=== PATIENT | male | born 1985 | race Caucasian/White ===

== ENCOUNTER 2020-03-30 21:13 | Inpatient (IN) | payer MEDICAID, SELFPAY ==
[2020-03-30 21:14] VITALS: BP 117/70; PULSE 101; RESP 24; TEMP 38.2; O2SAT 100; BMI 24.3
[2020-03-30 21:18] VITALS: BP 117/70; PULSE 101; RESP 24; TEMP 38.2; O2SAT 100
[2020-03-30 21:23] VITALS: O2SAT 97
--- NOTE | 2020-03-30 21:36 | EKG12_ITS ---
Test Reason : ARYTHMIA Blood Pressure : / mmHG Vent. Rate : 096 BPM Atrial Rate : 096 BPM P-R Int : 122 ms QRS Dur : 098 ms QT Int : 360 ms P-R-T Axes : 071 074 037 degrees QTc Int : 454 ms Normal sinus rhythm Normal ECG Confirmed by ESTELA BORREGO, YOLANDA ([id number]), newspaper editor managing UZMA CORADO ([id number]) on 04/05/2020 11:05:00 AM Referred By: DAVID Confirmed By:SHYANNE PALMER MD
--- NOTE | 2020-03-30 21:52 | ED.VIS.GEN ---
History of Present Illness Chief Complaint: Shortness of Breath Informant: Patient Narrative: Patient is a 34-year-old male who presents to the emerge department for feeling very poorly. States he feels like he is going to . He has body aches all over. He hurts in the shoulders bilaterally. He did not realize he had a fever until he presented here. This initially started 4 days ago but progressively got worse today. Not tried taking anything for this. He denies any cough. He has been feeling short of breath. No chest pain. No significant abdominal pain besides the pain that he hurts all over. He has not been nauseous or vomiting. He has been having a few episodes of diarrhea. No urinary symptoms. He states he did have a similar episode like this whenever he had an abscess drained in his right calf. He was in a coma for a month at that time. He does admit to IV drug abuse. States that he last used heroin yesterday. No known abscesses anywhere else at this time. He denies any significant neck stiffness. He does have a mild headache. No photophobia. All of his joints hurt. He denies any alcohol use. Past Medical History - Allergies and Home Meds Allergies/Adverse Reactions: Allergies No Known Allergies Allergy (Verified 03/30/20 21:18) Smoking Status: Current every day smoker Review of Systems All systems negative except as indicated General: Reports: Chills, Malaise. Denies: Fever, Sweats Eyes: Denies: Visual changes - bilaterally, Diplopia ENT: Denies: Rhinorrhea, Sore throat Cardiovascular: Denies: Chest pain, Palpitations Respiratory: Reports: Dyspnea. Denies: Cough Gastrointestinal: Reports: Diarrhea. Denies: Abdominal pain, Nausea, Vomiting Genitourinary: Denies: Dysuria, Hematuria, Frequency Musculoskeletal: Reports: Myalgias, Arthralgias, Back pain. Denies: Extremity Pain Skin: Denies: Rash, Wounds Neurological: Reports: Headache. Denies: Weakness, Numbness Physical Exam Vital Signs/Narrative: Vital Signs Temp Pulse Resp BP Pulse Ox 03/30/20 21:18 100.8 F H 101 H 24 H 117/70 100 03/30/20 21:14 100.8 F H 101 H 24 H 117/70 100 General: Well nourished, Well developed, Acute Distress - Mild distress Head: Normocephalic, Atraumatic Eyes: Perrl, EOMI ENT: Moist mucous membranes, No rhinorrhea Neck: Supple, Nontender, - - Negative Brudzinski and Kernig sign Cardiovascular: Regular rhythm, No murmurs, Tachycardia Respiratory: No distress, CTA bilaterally, Chest nontender Abdomen: Soft, Nontender, Nondistended, Normal bowel sounds Back: Nontender, Normal Inspection Extremities: No edema, Tenderness - Shoulder tenderness. Skin: Normal color, No rash Neurological: Alert, Oriented x3, Cranial nerves II-XII grossly intact, Normal Strength, Normal Sensation Psychological: Normal affect, Normal Mood Diagnostic/Tx/Re-eval - EKG Initial EKG Interpretation: - - Rate of 96 bpm and normal sinus rhythm. Normal intervals. Normal axis. No ST elevations or depressions appreciated. No T wave abnormalities. - Medical Decision Making Patient presents the emerge department for generally poor feeling. He has been having diffuse arthralgias. He does have a fever upon arrival is tachycardic and mildly tachypneic. He does admit to IV drug abuse. I do have concern for septic emboli. Basic lab work and blood cultures being obtained along with chest x-ray. X-ray showed multiple bilateral patchy infiltrates with CT scan was performed. This was consistent with septic emboli. His lactic acid is mildly elevated. He started on broad-spectrum antibiotics with vancomycin and Zosyn. Blood cultures obtained prior to antibiotic administration. His lactic acid was mildly elevated and he was given a bolus of normal saline. Given normal vital signs after initial bolus he does not require the full 30 cc/kg bolus dose of IV fluids. He is eating and drinking at bedside as well. He otherwise has been stable after initial treatment. Will bring into the ICU for further evaluation and management. Patient understands and is agreeable with this plan. - Critical Care Time Critical care time (excluding procedures): 30-74 minutes, Discussing w/Patient &/or Family/Machine Helper, Arranging Admission or Transfer, Performing Direct Patient Care at Bedside ED Disposition - Plan for ED Patient: Disposition: Acute Care [facility] Diagnosis: Septic pulmonary embolism, Severe sepsis, IV drug abuse
[2020-03-30 21:54] LABS: Basophil# 0.04 X10^3/uL; Basophil% 0.3 % (0-1); Eosinophil# 0.02 X10^3/uL; Eosinophils% 0.1 % (0-5); Hematocrit 31.5 % (40-54); Hemoglobin 10.6 g/dL (13.0-16.5); Mean Corp Hgb Conc 33.7 g/dL (32-36); Mean Corpuscular Hgb 26.8 pg (27.0-32.0); Mean Corpuscular Volume 79.7 fL (80-94); Mean Platelet Vol. 12.3 fl (6.2-12.0); Monocyte# 0.89 X10^3/uL; Monocyte% 6.3 % (0-10); NRBC Flagged by Analyzer 0 % (0-5); Neutrophil # 12.04 X10^3/uL (2.7-7.7); Neutrophil % 85.7 % (47-70); POSITIVE MORPHOLOGY YES; Platelet Count 126 K/mm3 (150-450); RBC Distribution Width CV 14.4 % (11.6-14.6); RBC Distribution Width SD 41.8 fl (35.1-43.9); Red Blood Count 3.95 M/mm3 (4.6-6.2); White Blood Count 14.1 K/mm3 (4.4-11.0)
[2020-03-30 22:00] LABS: Differential Indicated SCAN CRITERIA MET
--- NOTE | 2020-03-30 22:15 | RAD_ITS ---
STUDY: X-RAY CHEST REASON FOR EXAM: Male, 34 years old. COUGH, SOB, FEVER, WEAKNESS, STIFF LEGS X4 DAYS TECHNIQUE: Single AP portable view of the chest. COMPARISON: None. FINDINGS: Normal lung volumes. Patchy ill-defined pulmonary opacities in the periphery of both lungs worse on the right. The appearance is consistent with nonspecific multifocal pneumonia including possible viral etiologies. No effusions. Normal size heart. Normal mediastinum and moni. Normal visualized pulmonary arteries. Normal visualized aortic arch and descending thoracic aorta. Normal visualized thoracic spine. Normal visualized ribs, clavicles, and shoulders. There is no demonstrated abnormality of the visualized soft tissue structures of the upper abdomen. RAD/Chest 1 View (Portable) IMPRESSION: Multiple bilateral patchy areas of pulmonary opacity most consistent with nonspecific multifocal pneumonia. Electronically Signed: Gideon Merino MD at 22:37 EDT , Service support ,
[2020-03-30 22:16] LABS: ALB/GLOB Ratio 0.4 RATIO (0.9-2.4); AST(SGOT) 22 U/L (15-37); Alanine Aminotransfer ALT/SGPT 21 U/L (16-61); Albumin, Serum 1.9 g/dL (3.2-5.0); Alkaline Phosphatase 91 U/L (45-117); Anion Gap 8 (5-15); BUN 20 mg/dL (7-18); BUN/Creat Ratio 18.7 RATIO (10-20); Calcium,Total 7.6 mg/dL (8.5-10.1); Chloride 97 mmol/L (98-107); Creatinine, Serum 1.07 mg/dL (0.70-1.30); EST Glomerular Filtration Rate 83 mL/min (>60); Est Glom Filt Rate - Afr Amer 100 mL/min (>60); Estimated Creatinine Clearance 104.76 ml/min; Globulin 4.9 g/dL (2.2-4.2); Glucose 132 mg/dL (74-106); Potassium 3.6 mmol/L (3.5-5.1); Protein, Total 6.8 g/dL (6.4-8.2); Sodium Level 132 mmol/L (136-145)
[2020-03-30 22:22] VITALS: BP 113/68; PULSE 91; RESP 26; TEMP 37.8; O2SAT 95
[2020-03-30 22:27] LABS: Lactic Acid 2.7 mmol/L (0.4-1.9)
[2020-03-30] MEDS: 0.9% Normal Saline 1,000 ML 999 ML IV (22:34)
[2020-03-30] MEDS: Acetaminophen 325 MG Tablet 650 MG PO (22:35)
[2020-03-30 22:52] LABS: Anisocytosis RARE; Microcytosis RARE; Platelet Estimate SLT DEC (ADEQ); Red Cell Morphology N CHROM NORMAL (NORM C&C); Toxic Granulation 1+
[2020-03-30 23:00] VITALS: BP 117/63; PULSE 88; RESP 28; TEMP 37.7; O2SAT 96
--- NOTE | 2020-03-30 23:11 | CT_ITS ---
HISTORY: ABN XRAY. ADDITIONAL HISTORY: Cough, shortness of breath, fever, weakness and stiff legs for 4 days EXAMINATION/TECHNIQUE: CTA Chest WO/W Contrast Injection PULMONARY EMBOLISM PROTOCOL: 2D and 3D images to include MIP and/or volume rendered images CONTRAST: IV 100mL [id number] Number of images including paperwork: [id number] A radiation dose optimization technique was used for this scan. COMPARISON: Chest x-ray 03/30/2020 FINDINGS: PULMONARY ARTERIES: No large central embolus. Evaluation limited due to suboptimal contrast bolus timing despite 2 attempts. AORTA AND GREAT VESSELS: Unremarkable. HEART/PERICARDIUM: Normal heart size. Trace pericardial fluid. MEDIASTINUM: Unremarkable. ADENOPATHY: Mild mediastinal and right hilar adenopathy. THYROID: Unremarkable visualized portions. LUNG PARENCHYMA: Multiple bilateral lung nodules, many of which are cavitated. Nodules have peripheral predominant distribution. Some have adjacent groundglass opacity. PLEURAL SPACES: Unremarkable. UPPER ABDOMEN: The visualized portion of the spleen appears enlarged measuring 15.7 cm AP. Renal enhancement appears heterogeneous on the second scan. OSSEOUS AND SOFT TISSUE STRUCTURES: No acute skeletal findings. CT/CTA Chest W/WO Contrast IMPRESSION: 1. No large central pulmonary embolus. Evaluation limited due to suboptimal contrast timing. 2. Numerous bilateral lung nodules, many of which are cavitary. Septic emboli, cavitating infection, necrotizing noninfectious granulomatous disease such as granulomatosis with polyangiitis, and metastatic disease are in the differential diagnosis. 3. Heterogeneous renal enhancement. Correlate with urinalysis. 4. Additional findings above. Individualized dose optimization techniques were used for this CT. at 0018 Reported and signed by: Andra Thomas MD Electronically Signed: Andra Thomas MD at 0:18 EDT Tel , Service support ,
--- NOTE | 2020-03-30 23:32 | HP.PCM_ITS ---
History of Present Illness Date of Admission: 03/30/20 Chief Complaint: Fever, chills, diarrhea, dyspnea x 4 days Admission Diagnoses: 1. Severe Sepsis secondary to Bilateral Pulmonary Cavitating Nodules/PNA and High Suspicion Endocarditis with underlying IVDA complicated by Opiate Acute Withdrawal 2. Acute Opiate Withdrawal 3. Microcytic anemia, unclear chronicity 4. Hyponatremia, hypovolemic suspected 5. Hyperglycemia 6. Polysubstance Abuse, IVDA, History of Hepatitis C, Chronic 7. Tobacco Abuse The patient is a 34 y/o M w/ PMHx: Polysubstance abuse w/ IVDA (Heroin, daily IV use, unclear amount, notes had been clean for since early in the year but relapsed x 4 weeks, last usage 24-48 hours prior), Known Hepatitis C who presents to the [facility] ED on 03/30/20 with history of 4 days of progressively worsening fatigue, malaise, fever and chills, severe diffuse arthralgias although worse BL shoulder, dyspnea worse with exertion but no related cough although coughing while in the ED with no nausea, emesis, abdominal pain but reported diarrhea (2-3 episodes daily), no headache, no change in his sense of t aste or smell. Last IV injection was his antecubital fossa with no pain, erythema. He is unable to tell exactly his last usage of IV heroin but notes 24 to 48 hours prior thus per discussion some symptoms could also be related to withdrawal. In the ED work-up included T 100.8, heart rate 101, BP 117/70, respiratory rate 24, on a percent on room air, CBC with WBC 14.1, hemoglobin 10.6, platelet 126 with left shift and also concurrent lymphopenia, CMP with sodium 132, chloride 97, BUN/creatinine 20/1.07, glucose 132, lactic acid 2.7, calcium 7.6, troponin less than 0.015, EKG was sinus tachycardia with no acute evidence of ischemia, chest x-ray with multiple bilateral patchy areas of pulmonary opacity consistent with a nonspecific multifocal pneumonia, follow-up CTPA with no large central pulmonary emboli although evaluation limited secondary to suboptimal contrast timing, numerous bilateral lung nodules many of which are cavitary, heterogeneous renal enhancement. In the ED patient mi nistered normal saline, Tylenol, vancomycin and Zosyn. Past Medical History Allergies No Known Allergies Allergy (Verified 03/30/20 21:18) Home Medications: Ambulatory Orders Medication Instructions Recorded NK 03/30/20 Lives: Alone Smoking Status: Current every day smoker - Patient with ongoing 1/2 pack/day cigarette tobacco usage. Tobacco Use: Cigarettes Alcohol: None Drugs: Heroin - Patient with ongoing IV heroin usage, relapsed recently has been using for at least the last 4 weeks but had been clean for several months prior to this. - *Family History Maternal History Items: Diabetes Paternal History Items: - - Patient denies any market paternal family history of heart disease, diabetes, cancer but states he does not know his history well. Review of Systems Constitutional: Reports: Anorexia, Chills, Fever, Malaise, Weakness, Fatigue. Denies: Weight Change HEENT: Denies: Head Aches, Sinus Congestion, Sinus Drainage Cardiovascular: Denies: Chest Pain, Chest Pressure, Chest Tightness, Light Headedness, Orthopnea, Palpitations, Syncope Respiratory: Reports: Shortness of Breath, Shortness of breath at rest, Shortness of breath upon exertion. Denies: Cough, Sputum production, Wheezing Gastrointestinal: Reports: Diarrhea. Denies: Abdominal Pain, Nausea, Vomiting Genitourinary: Denies: Dysuria Musculoskeletal: Reports: Joint Pain, Joint stiffness, Muscle pain. Denies: Joint Tenderness Skin: Reports: Skin Changes. Denies: Rash, Wounds Neurological: Denies: Numbness, Tingling, Focal weakness Psychiatric: Denies: Anxiety, Depression, Homicidal Ideations, Suicidal Ideations Hematologic/ Lymphatic: Reports: Anemia. Denies: Easy Bruising, Easy Bleeding VTE Information - Inpt Only VTE Present on Admission: No VTE Mechan Device Prophylaxis: SCD's VTE Pharm Prophylaxis ordered?: Yes Patient Problems: Active and Suspected Problems Septic pulmonary embolism (Acute) Severe sepsis (Acute) IV drug abuse (Acute) Subjective: Patient laying in the ED bed, coated in sweat, ill-appearing, notes severe ongoing diffuse pain. Objective: Physical Examination: General: awake, alert, oriented x 3 and cooperative, laying in the ED bed, ill appearing, coated in sweat. Skin: normal color, turgor, no icterus, cyanosis, most recent injection sites in the antecubital fossa with no erythema or fluctuance. HEENT: AT/NC, EOMI, PERRLA, dry MM, no carotid bruits or JVD noted. Lungs: Diffusely diminished, greater bases, mildly increased respiratory rate but no obvious evidence of distress, no rales, ronchi or wheezing. Heart: Tachycardic with regular rhythm; no gallop, rub audible, +SM. Abdomen: soft, NTTP, ND, normal BS, no HSM. Extremities: no cyanosis, clubbing, or edema, see skin. Neurological: patient awake, alert, oriented x 3; cognitive function suspect near baseline intact; pupils equally reactive to light and accomodation; cranial nerves II-XII grossly normal, moving all 4 extremities, no focal deficits, strength moderately to severely globally decreased secondary to acute presentation and complaints. Psychiatric: affect appears ill, mildly agitated, uncomfortable appearing, no acute evidence of depressive or anxiety feelings. - Physical Exam Vitals/I&O's: Vital Signs Temp Pulse Resp BP Pulse Ox 100 F H 88 28 H 117/63 96 03/30/20 23:00 03/30/20 23:00 03/30/20 23:00 03/30/20 23:00 03/30/20 23:00 Oxygen Delivery Method Room Air Weight: 179 lb 7.3 oz Body Mass Index (BMI) 24.3 Laboratory Results 03/30/20 21:30: WBC 14.1 H, RBC 3.95 L, Hgb 10.6 L, Hct 31.5 L, MCV 79.7 L, MCH 26.8 L, MCHC 33.7, RDW Std Deviation 41.8, RDW Coeff of Gee 14.4, Plt Count 126 L, MPV 12.3 H, Immature Gran % (Auto) 2.600 H, Neut % (Auto) 85.7 H, Lymph % (Auto) 5.0 L, Greene % (Auto) 6.3, Eos % (Auto) 0.1, Baso % (Auto) 0.3, Absolute Neuts (auto) 12.0 H, Absolute Lymphs (auto) 0.70 L, Nucleated RBC % 0, Toxic Granulation 1+, Platelet Estimate SLT DEC, RBC Morphology N CHROM, Anisocytosis RARE, Microcytosis RARE 03/30/20 21:30: Sodium 132 L, Potassium 3.6, Chloride 97 L, Carbon Dioxide 27.0, Anion Gap 8, BUN 20 H, Creatinine 1.07, Estim Creat Clear Calc 104.76, Est GFR (MDRD) Af Amer 100, Est GFR (MDRD) Non-Af 83, BUN/Creatinine Ratio 18.7, Glucose 132 H, Calcium 7.6 L, Total Bilirubin 0.70, AST 22, ALT 21, Alkaline Phosphatase 91, Troponin I < 0.015, Total Protein 6.8, Albumin 1.9 L, Globulin 4.9 H, Albumin/Globulin Ratio 0.4 L 03/30/20 21:30: Lactic Acid 2.7 H* 03/30/20 21:50: COVID-19 (PILLO) Pending Current Medications Vancomycin HCl 1,750 mg/ (Sodium Chloride) 535 mls @ 250 mls/hr IV X1 ONE Stop: 03/31/20 00:38 Assessment/Plan All Active Problems Septic pulmonary embolism (Acute) Severe sepsis (Acute) IV drug abuse (Acute) The patient is a 34 y/o M w/ PMHx: Polysubstance abuse w/ IVDA (Heroin, daily IV use, unclear amount, notes had been clean for since early in the year but relapsed x 4 weeks, last usage 24-48 hours prior), Known Hepatitis C who presents to the [facility] ED on 03/30/20 with history of 4 days of progressively worsening fatigue, malaise, fever and chills, severe diffuse arthralgias although worse BL shoulder, dyspnea worse with exertion but no related cough and diarrhea. 1. Severe Sepsis secondary to Bilateral Pulmonary Cavitating Nodules/PNA and High Suspicion Endocarditis with underlying IVDA complicated by Opiate Acute Withdrawal: COVID testing negative, lower suspicion given history and CT findings. Will admit to the ICU, maintain on oxygen with wean as tolerated to room air, PRN albuterol, maintained on IV Zosyn and Vancomycin, requesting ICU and ID consultations, HOB, IS parameters w/ pending sputum cultures and urine antigens. Bld cx x 2 obtained in the ED. ECHO requested. 2. Acute Opiate Withdrawal: Suspect contributing to his presentation therefore if BP will allow will initiate and continue on protocol with tapering course of Subutex, as needed tylenol, ibuprofen, bowel regimen, gabapentin, Bentyl, Vistaril, methocarbamol, clonidine, PRN nightly trazodone for insomnia, IV fluids, IV antiemetics. Requested consultation with case management for transition to next level of rehabilitation care. 3. Microcytic anemia, unclear chronicity: Admission hemoglobin 10.6, MCV 79.7, will request iron panel+ TIBC, ferritin. 4. Hyponatremia, hypovolemic suspected: Admission sodium 132, likely associated with acute presentation as noted, continue aggressive hydration, trend CMP. 5. Hyperglycemia: Admission glucose 132, likely secondary to acute presentation, will obtain A1c to be cautious. 6. Polysubstance Abuse, IVDA, History of Hepatitis C, Chronic: Patient currently not candidate for hep C treatment currently as needs to be clean, sober x 6 months, documented attendance NA or AA meetings, counseling and ongoing negative drug screens. HIV, hepatitis panel to assess for co-infection pending. 7. Tobacco Abuse: Encouraged cessation, inpatient consultation per RT, NR if desired. 8. DVT prophylaxis: SCDs, Lovenox. Inpatient E&M: 69756 Init Hosp L3
[2020-03-31] VITALS (30 sets, daily range): BP systolic 83–129; BP diastolic 62–82; PULSE 71–106; RESP 16–38; TEMP 35.8–37.8; O2SAT 95–100; BMI 23.3
--- NOTE | 2020-03-31 00:45 | ED.RN ---
report called to karla
[2020-03-31 01:44] LABS: Reflex Lactate? Y
--- NOTE | 2020-03-31 01:45 | ECHOD_ITS ---
Reason For Study: ARRHYTHMIA Procedure This was a 2D Doppler, Color Flow transthoracic echocardiogram. The study was technically difficult. Pt scanned supine due to pain from withdrawl. Exam performed portable in ICU/CCU. Left Ventricle Normal LV size. The estimated ejection fraction is 55 %. Normal diastology for age. No regional wall motion abnormalities noted. Right Ventricle Normal RV size. Normal systolic function. Atria Normal left atrium. Normal right atrium. No doppler evidence for ASD. Mitral Valve There is no mitral valve stenosis. No mitral valve insufficiency. Tricuspid Valve Echodensity in the subvalvular apparatus that measures 0.9cm x 1.3cm that appears to a vegetation. There is no tricuspid stenosis. Trivial tricuspid valve insufficiency. Pulmonary artery systolic pressure is 40 mmHg. Aortic Valve Trisinus/trileaflet aortic valve. There is no aortic stenosis. No aortic valve insufficiency. Pulmonic Valve There is no pulmonic valvular stenosis. No pulmonic valve insufficiency. Great Vessels Normal aortic root. Pericardium/Pleural No pericardial effusion. MMode/2D Measurements & Calculations LVIDd: 5.4 cm IVSd: 1.0 cm Ao root diam: 3.9 cm LVIDs: 4.0 cm LVPWd: 0.85 cm RVDd: 4.0 cm FS: 27.0 % LAV(MOD-bp): 52.8 ml LA A4 area: 15.5 cm2 LA dimension(2D): 3.6 cm LAV(MOD-bp) Indexed: 26.5 ml/m2 LAV(MOD-sp2): 65.1 ml LAV(MOD-sp4): 40.2 ml RA A4 area: 17.4 cm2 Time Measurements MV dec time: 0.32 sec Doppler Measurements & Calculations MV E max danilo: 68.7 cm/sec Lat Peak E' Danilo: 13.1 cm/sec Med Peak E' Danilo: 9.4 cm/sec MV A max danilo: 58.0 cm/sec E/E' lat: 5.2 E/E' med: 7.3 MV E/A: 1.2 Ao V2 max: 141.8 cm/sec LV V1 max: 122.7 cm/sec TR max danilo: 291.3 cm/sec Ao max P.1 mmHg LV V1 max P.0 mmHg TR max P.9 mmHg Interpretation Summary The estimated ejection fraction is 55 %. Normal diastology for age. Echodensity in the subvalvular apparatus that measures 0.9cm x 1.3cm that appears to a vegetation Ordering Physician: Leah Cain Performed By: Celina Mayorga, MESFIN, RVT
[2020-03-31] MEDS: Famotidine 20 MG Tablet PO ×2 (02:19→20:58)
[2020-03-31] MEDS: Enoxaparin 40 MG/0.4 ML Syringe SC (02:20)
[2020-03-31] MEDS: 0.9% Saline Lock 10 ML Syringe IV ×5 (02:20→13:02)
[2020-03-31] MEDS: Morphine 4 MG/ML Syringe IV ×3 (02:30→13:01)
[2020-03-31] MEDS: 0.9% Normal Saline 1,000 ML 150 ML IV ×3 (02:30→19:50)
[2020-03-31] MEDS: 0.9% Normal Saline 1,000 ML 999 ML IV ×2 (02:39→03:42)
[2020-03-31 02:40] LABS: Hemoglobin A1c 5.7 % (3.8-5.6)
[2020-03-31 02:49] LABS: D-Dimer Quantitative (DVT/PE) > 20.00 FEU/ug/m (0.27-0.49)
[2020-03-31 02:51] LABS: Lactic Acid 3.1 mmol/L (0.4-1.9)
[2020-03-31 03:03] LABS: HIV - WCH Non-Reactive (Nonreactive); Procalcitonin 0.92 ng/mL (0.00-0.09)
[2020-03-31 03:10] LABS: Absolute Lymphocyte Count 0.96 X10^3/uL (0.83-4.51); Absolute Neutrophil Count 11.8 X10^3/uL (2.0-7.7); Basophil# 0.03 X10^3/uL; Basophil% 0.2 % (0-1); Eosinophil# 0.03 X10^3/uL; Eosinophils% 0.2 % (0-5); Hematocrit 30.6 % (40-54); Hemoglobin 10.3 g/dL (13.0-16.5); Lymphocyte # 0.96 X10^3/ul (4.0); Lymphocyte % 6.8 % (19-41); Mean Corp Hgb Conc 33.7 g/dL (32-36); Mean Corpuscular Volume 80.3 fL (80-94); Mean Platelet Vol. 11.2 fl (6.2-12.0); Monocyte# 0.92 X10^3/uL; Monocyte% 6.5 % (0-10); NRBC Flagged by Analyzer 0 % (0-5); Neutrophil # 11.83 X10^3/uL (2.7-7.7); Neutrophil % 84.2 % (47-70); POSITIVE MORPHOLOGY YES; Platelet Count 121 K/mm3 (150-450); RBC Distribution Width CV 14.6 % (11.6-14.6); RBC Distribution Width SD 42.4 fl (35.1-43.9); Red Blood Count 3.81 M/mm3 (4.6-6.2); White Blood Count 14.1 K/mm3 (4.4-11.0)
[2020-03-31 03:11] LABS: Differential Indicated SCAN CRITERIA MET
[2020-03-31] MEDS: Ibuprofen 600 MG Tablet PO ×2 (03:28→13:01)
--- NOTE | 2020-03-31 03:53 | PCM.RX.CS ---
Consult Pharmacy has been consulted to manage selected antiobiotic: Vancomycin Type of Consult: New start Suspected Infection: Pneumonia Labs: Sodium 132 mmol/L (136-145) L 03/30/20 21:30 Potassium 3.6 mmol/L (3.5-5.1) 03/30/20 21:30 Chloride 97 mmol/L (98-107) L 03/30/20 21:30 Carbon Dioxide 27.0 mmol/L (21.0-32.0) 03/30/20 21:30 Anion Gap 8 (5-15) 03/30/20 21:30 BUN 20 mg/dL (7-18) H 03/30/20 21:30 Creatinine 1.07 mg/dL (0.70-1.30) 03/30/20 21:30 Est GFR (MDRD) Af Amer 100 mL/min (>60) 03/30/20 21:30 Est GFR (MDRD) Non-Af 83 mL/min (>60) 03/30/20 21:30 BUN/Creatinine Ratio 18.7 RATIO (-20) 03/30/20 21:30 Glucose 132 mg/dL (74-106) H 03/30/20 21:30 Estimated Creatinine Clearance: >100 Goal Trough: 15-20 mcg/mL Pharmacy Plan for Drug Dosing: Pharmacy Service will continue to monitor and adjust dosing as required. Medications Vancomycin HCl (Vancomycin) 1,000 mg in 200 mls @ 200 mls/hr IV Q8H JOEL Discontinued Medications Vancomycin HCl 1,750 mg/ (Sodium Chloride) 535 mls @ 250 mls/hr IV X1 ONE Stop: 03/31/20 00:38 Last Admin: 03/31/20 02:15 Dose: Infused Documented by: Follow-Up Labs: Trough Vancomycin Labs to be done on [date and time ordered]: 03/31 @ 6131
[2020-03-31 04:00] LABS: Amphetamine Urine VISTA NEGATIVE (<1000 ng/mL); Barbiturate Urine VISTA NEGATIVE (< 200 ng/mL); Benzodiazepine Urine VISTA NEGATIVE (< 200 ng/mL); Cocaine Urine VISTA NEGATIVE (< 300 ng/mL); Ecstacy Urine VISTA NEGATIVE (< 500 ng/mL); Methadone Urine VISTA NEGATIVE (< 300 ng/mL); PCP Urine VISTA NEGATIVE (< 25 ng/mL); THC Urine VISTA NEGATIVE (< 50 ng/mL); Vista UDS pH Range 5
[2020-03-31 04:01] LABS: Differential Comment SCANNED
[2020-03-31 04:09] LABS: Ferritin 764 ng/mL (26-388); Iron 14 ug/dL (65-175); Iron Binding Capacity,Total 143 ug/dL (250-450); LDH 135 U/L (87-241); Magnesium 2.2 mg/dL (1.6-2.6); PERCENT IRON SATURATION 9.8 % (15.0-55.0)
--- NOTE | 2020-03-31 05:26 | NURSING ---
Pt asking for snack. Remains painful, states its more his shoulder joints anteriorly.
--- NOTE | 2020-03-31 05:55 | RAD_ITS ---
STUDY: X-RAY CHEST REASON FOR EXAM: Male, 34 years old. SOB AND COUGH TECHNIQUE: Single AP portable view of the chest. COMPARISON: 03/30/[address] chest. FINDINGS: There are superimposed monitor leads. There is no significant change of bilateral ill-defined predominantly peripheral nodules/masses some of which are cavitating. There is no demonstrated pleural abnormality. Normal size heart. Normal mediastinum and moni. Normal visualized pulmonary arteries. Normal visualized aortic arch and descending thoracic aorta. Normal visualized thoracic spine. Normal visualized ribs, clavicles, and shoulders. There is no demonstrated abnormality of the visualized soft tissue structures of the upper abdomen. RAD/Chest 1 View (Portable) IMPRESSION: Bilateral peripheral nodules/masses some of which are cavitating without change. Consider septic emboli among others. Electronically Signed: Evon Dey MD at 6:51 EDT , Service support ,
[2020-03-31 05:59] LABS: ALB/GLOB Ratio 0.3 RATIO (0.9-2.4); AST(SGOT) 19 U/L (15-37); Alanine Aminotransfer ALT/SGPT 16 U/L (16-61); Albumin, Serum 1.5 g/dL (3.2-5.0); Alkaline Phosphatase 75 U/L (45-117); Anion Gap 5 (5-15); BUN 16 mg/dL (7-18); BUN/Creat Ratio 18.6 RATIO (10-20); Calcium,Total 6.9 mg/dL (8.5-10.1); Chloride 107 mmol/L (98-107); Creatinine, Serum 0.86 mg/dL (0.70-1.30); EST Glomerular Filtration Rate 107 mL/min (>60); Est Glom Filt Rate - Afr Amer 129 mL/min (>60); Estimated Creatinine Clearance 130.34 ml/min; Globulin 4.4 g/dL (2.2-4.2); Glucose 129 mg/dL (74-106); Potassium 3.6 mmol/L (3.5-5.1); Protein, Total 5.9 g/dL (6.4-8.2); Sodium Level 138 mmol/L (136-145)
[2020-03-31 06:18] LABS: Lactic Acid 2.3 mmol/L (0.4-1.9)
--- NOTE | 2020-03-31 06:19 | PCM.CON.CC ---
Reason for Consult Date of Consultation: 03/31/20 Reason for Consultation: Severe sepsis History of Present Illness: The patient is a 34-year-old male, with a history as outlined below, who presented to the emergency department on March 30 with complaints of shortness of breath, myalgias, fatigue and malaise for the last 4 to 5 days. The patient reports a longstanding history of heroin dependency, which was apparently in remission up until a few weeks ago, when he again began to use. The patient did report that he last used 24 hours ago. He typically injects in his distal upper extremities. In addition to the aforementioned symptoms, he does report a great deal of pain in his bilateral shoulders. On presentation to the emergency department, the patient was noted to be febrile with a temperature of 100.8 ?F. He was also noted to be tachycardic and tachypneic. Laboratory evaluation revealed an elevated white blood cell count of 14,000. D-dimer was elevated to greater than 20. Chemistry profile was notable for a sodium of 132, chloride of 97 and creatinine of 1.07. Lactate was elevated to 2.7. Albumin was low at 1.9. Procalcitonin was elevated to 0.92. Toxicology screen was positive for opiates. Coronavirus PCR was negative. A CTA chest was obtained which showed no evidence for pulmonary embolism. However, innumerable bilateral cavitary lesions were noted, likely the consequence of septic emboli. The patient received supplemental IV fluid hydration and was placed on broad-spectrum antimicrobials. He was subsequently admitted to the medical intensive care unit for further management. Past Medical History Allergies No Known Allergies Allergy (Verified 03/30/20 21:18) Home Medications: Ambulatory Orders Medication Instructions Recorded NK 03/30/20 Lives: Alone Smoking Status: Current every day smoker Tobacco Use: Cigarettes Alcohol: None Drugs: Heroin - Patient with ongoing IV heroin usage, relapsed recently has been using for at least the last 4 weeks but had been clean for several months prior to this. - *Family History Maternal History Items: Diabetes Paternal History Items: - - Patient denies any market paternal family history of heart disease, diabetes, cancer but states he does not know his history well. Review of Systems Constitutional: Reports: Chills, Fever, Malaise, Weakness, Fatigue Eyes: Denies: Blurred vision, Double vision HEENT: Denies: Head Aches, Sinus Congestion, Sinus Drainage Cardiovascular: Denies: Chest Pain, Palpitations Respiratory: Reports: Shortness of Breath. Denies: Cough Gastrointestinal: Denies: Abdominal Pain, Nausea, Vomiting Genitourinary: Denies: Dysuria Musculoskeletal: Reports: Joint Pain Skin: Denies: Rash, Wounds Neurological: Denies: Numbness, Tingling, Focal weakness Psychiatric: Denies: Anxiety, Depression, Homicidal Ideations, Suicidal Ideations Hematologic/ Lymphatic: Reports: Anemia Objective: The patient's most recent lab work, culture data and imaging studies have all been personally reviewed. Strep and urine Legionella antigens were negative. Respiratory viral panel was negative. Blood cultures are pending. - Physical Exam Vitals/I&O's: Vital Signs Temp Pulse Resp BP Pulse Ox 100.1 F H 106 H 26 H 106/64 99 03/31/20 06:00 03/31/20 06:00 03/31/20 06:00 03/31/20 06:00 03/31/20 06:00 Oxygen Delivery Method Room Air Weight: 179 lb 3.773 oz Body Mass Index (BMI) 23.3 Intake and Output for Last 24 Hours 03/29/20 03/30/20 03/31/20 23:59 23:59 23:59 Intake Total 1050 / 1050 2879.65 / 2879.65 Output Total 540 / 540 Balance 1050 / 1050 2339.65 / 2339.65 General: Alert, Cooperative, - - Quite ill in appearance. HEENT: Atraumatic, PERRLA, Normocephalic Oral: No Gingival or Mucosal Lesions/ Ulcerations Neck: Supple, No Nodes, Trachea Midline Lungs: Diminished, Tachypneic Cardiovascular: Regular rate, Regular Rhythm Abdomen: Bowel Sounds Present, Soft, Non Tender Extremities: No clubbing, No cyanosis, No edema, - Skin: - - Track olmstead present on distal upper extremities. Healed surgical scar on distal left lower extremity Musculoskeletal: - - There is tenderness to palpation of the bilateral shoulder joint spaces Lymphatic: No Cervical, Supraclavicular, or Inguinal Adenopathy Neurological: Cranial nerves II-XII grossly intact, Neuro grossly intact Psych/Mental Status: Normal Affect, Appropriate Labs (Last 48 Hours) 03/30/20 03/30/20 03/30/20 21:30 21:30 21:30 WBC 14.1 H RBC 3.95 L Hgb 10.6 L Hct 31.5 L MCV 79.7 L MCH 26.8 L MCHC 33.7 RDW Std Deviation 41.8 RDW Coeff of Gee 14.4 Plt Count 126 L MPV 12.3 H Immature Gran % (Auto) 2.600 H Neut % (Auto) 85.7 H Lymph % (Auto) 5.0 L Ocean % (Auto) 6.3 Eos % (Auto) 0.1 Baso % (Auto) 0.3 Absolute Neuts (auto) 12.0 H Absolute Lymphs (auto) 0.70 L Nucleated RBC % 0 Differential Comment Toxic Granulation 1+ Platelet Estimate SLT DEC RBC Morphology N CHROM Anisocytosis RARE Microcytosis RARE D-Dimer Quant (PE/DVT) Sodium 132 L Potassium 3.6 Chloride 97 L Carbon Dioxide 27.0 Anion Gap 8 BUN 20 H Creatinine 1.07 Estim Creat Clear Calc 104.76 Est GFR (MDRD) Af Amer 100 Est GFR (MDRD) Non-Af 83 BUN/Creatinine Ratio 18.7 Glucose 132 H Hemoglobin A1c Lactic Acid 2.7 H* Calcium 7.6 L Magnesium Iron TIBC Iron Saturation Ferritin Total Bilirubin 0.70 AST 22 ALT 21 Alkaline Phosphatase 91 Lactate Dehydrogenase Troponin I < 0.015 C-React Prot Ext Range Total Protein 6.8 Albumin 1.9 L Globulin 4.9 H Albumin/Globulin Ratio 0.4 L Procalcitonin Urine Opiates Screen Urine Methadone Screen Ur Barbiturates Screen Ur Phencyclidine Scrn Ur Amphetamines Screen U Methamphetamin-MDMA U Benzodiazepines Scrn Urine Cocaine Screen U Cannabinoids Screen Ur Drug Screen Comment COVID-19 (PILLO) Hepatitis A IgM Ab Hepatitis A Ab Total Hep Bs Antigen Hep B Core Total Ab Hep B Core IgM Ab HIV 1&2 Antibody 03/30/20 03/31/20 03/31/20 21:50 02:10 02:10 WBC RBC Hgb Hct MCV MCH MCHC RDW Std Deviation RDW Coeff of Gee Plt Count MPV Immature Gran % (Auto) Neut % (Auto) Lymph % (Auto) Ocean % (Auto) Eos % (Auto) Baso % (Auto) Absolute Neuts (auto) Absolute Lymphs (auto) Nucleated RBC % Differential Comment Toxic Granulation Platelet Estimate RBC Morphology Anisocytosis Microcytosis D-Dimer Quant (PE/DVT) > 20.00 H* Sodium Potassium Chloride Carbon Dioxide Anion Gap BUN Creatinine Estim Creat Clear Calc Est GFR (MDRD) Af Amer Est GFR (MDRD) Non-Af BUN/Creatinine Ratio Glucose Hemoglobin A1c Lactic Acid 3.1 H* Calcium Magnesium Iron TIBC Iron Saturation Ferritin Total Bilirubin AST ALT Alkaline Phosphatase Lactate Dehydrogenase Troponin I C-React Prot Ext Range Total Protein Albumin Globulin Albumin/Globulin Ratio Procalcitonin Urine Opiates Screen Urine Methadone Screen Ur Barbiturates Screen Ur Phencyclidine Scrn Ur Amphetamines Screen U Methamphetamin-MDMA U Benzodiazepines Scrn Urine Cocaine Screen U Cannabinoids Screen Ur Drug Screen Comment COVID-19 (PILLO) Not Detected Hepatitis A IgM Ab Hepatitis A Ab Total Hep Bs Antigen Hep B Core Total Ab Hep B Core IgM Ab HIV 1&2 Antibody 03/31/20 03/31/20 03/31/20 02:10 02:10 02:10 WBC RBC Hgb Hct MCV MCH MCHC RDW Std Deviation RDW Coeff of Gee Plt Count MPV Immature Gran % (Auto) Neut % (Auto) Lymph % (Auto) Ocean % (Auto) Eos % (Auto) Baso % (Auto) Absolute Neuts (auto) Absolute Lymphs (auto) Nucleated RBC % Differential Comment Toxic Granulation Platelet Estimate RBC Morphology Anisocytosis Microcytosis D-Dimer Quant (PE/DVT) Sodium Potassium Chloride Carbon Dioxide Anion Gap BUN Creatinine Estim Creat Clear Calc Est GFR (MDRD) Af Amer Est GFR (MDRD) Non-Af BUN/Creatinine Ratio Glucose Hemoglobin A1c Lactic Acid Calcium Magnesium 2.2 Iron 14 L TIBC 143 L Iron Saturation 9.8 L Ferritin 764 H Total Bilirubin AST ALT Alkaline Phosphatase Lactate Dehydrogenase 135 Troponin I C-React Prot Ext Range 156.00 H Total Protein Albumin Globulin Albumin/Globulin Ratio Procalcitonin 0.92 H Urine Opiates Screen Urine Methadone Screen Ur Barbiturates Screen Ur Phencyclidine Scrn Ur Amphetamines Screen U Methamphetamin-MDMA U Benzodiazepines Scrn Urine Cocaine Screen U Cannabinoids Screen Ur Drug Screen Comment COVID-19 (PILLO) Hepatitis A IgM Ab Pending Hepatitis A Ab Total Pending Hep Bs Antigen Pending Hep B Core Total Ab Pending Hep B Core IgM Ab Pending HIV 1&2 Antibody Non-Reactive 03/31/20 03/31/20 03/31/20 02:10 02:10 02:10 WBC 14.1 H RBC 3.81 L Hgb 10.3 L Hct 30.6 L MCV 80.3 MCH 27.0 MCHC 33.7 RDW Std Deviation 42.4 RDW Coeff of Gee 14.6 Plt Count 121 L MPV 11.2 Immature Gran % (Auto) 2.100 H Neut % (Auto) 84.2 H Lymph % (Auto) 6.8 L Ocean % (Auto) 6.5 Eos % (Auto) 0.2 Baso % (Auto) 0.2 Absolute Neuts (auto) 11.8 H Absolute Lymphs (auto) 0.96 Nucleated RBC % 0 Differential Comment SCANNED Toxic Granulation Platelet Estimate RBC Morphology Anisocytosis Microcytosis D-Dimer Quant (PE/DVT) Sodium Potassium Chloride Carbon Dioxide Anion Gap BUN Creatinine Estim Creat Clear Calc Est GFR (MDRD) Af Amer Est GFR (MDRD) Non-Af BUN/Creatinine Ratio Glucose Hemoglobin A1c 5.7 H Lactic Acid Calcium Magnesium Iron TIBC Iron Saturation Ferritin Total Bilirubin AST ALT Alkaline Phosphatase Lactate Dehydrogenase Troponin I < 0.015 C-React Prot Ext Range Total Protein Albumin Globulin Albumin/Globulin Ratio Procalcitonin Urine Opiates Screen Urine Methadone Screen Ur Barbiturates Screen Ur Phencyclidine Scrn Ur Amphetamines Screen U Methamphetamin-MDMA U Benzodiazepines Scrn Urine Cocaine Screen U Cannabinoids Screen Ur Drug Screen Comment COVID-19 (PILLO) Hepatitis A IgM Ab Hepatitis A Ab Total Hep Bs Antigen Hep B Core Total Ab Hep B Core IgM Ab HIV 1&2 Antibody 03/31/20 03/31/20 03/31/20 03:05 05:40 05:40 WBC RBC Hgb Hct MCV MCH MCHC RDW Std Deviation RDW Coeff of Gee Plt Count MPV Immature Gran % (Auto) Neut % (Auto) Lymph % (Auto) Ocean % (Auto) Eos % (Auto) Baso % (Auto) Absolute Neuts (auto) Absolute Lymphs (auto) Nucleated RBC % Differential Comment Toxic Granulation Platelet Estimate RBC Morphology Anisocytosis Microcytosis D-Dimer Quant (PE/DVT) Sodium 138 Potassium 3.6 Chloride 107 Carbon Dioxide 26.0 Anion Gap 5 BUN 16 Creatinine 0.86 Estim Creat Clear Calc 130.34 Est GFR (MDRD) Af Amer 129 Est GFR (MDRD) Non-Af 107 BUN/Creatinine Ratio 18.6 Glucose 129 H Hemoglobin A1c Lactic Acid Calcium 6.9 L Magnesium Iron TIBC Iron Saturation Ferritin Total Bilirubin 0.50 AST 19 ALT 16 Alkaline Phosphatase 75 Lactate Dehydrogenase Troponin I < 0.015 C-React Prot Ext Range Total Protein 5.9 L Albumin 1.5 L Globulin 4.4 H Albumin/Globulin Ratio 0.3 L Procalcitonin Urine Opiates Screen POSITIVE H Urine Methadone Screen NEGATIVE Ur Barbiturates Screen NEGATIVE Ur Phencyclidine Scrn NEGATIVE Ur Amphetamines Screen NEGATIVE U Methamphetamin-MDMA NEGATIVE U Benzodiazepines Scrn NEGATIVE Urine Cocaine Screen NEGATIVE U Cannabinoids Screen NEGATIVE Ur Drug Screen Comment COVID-19 (PILLO) Hepatitis A IgM Ab Hepatitis A Ab Total Hep Bs Antigen Hep B Core Total Ab Hep B Core IgM Ab HIV 1&2 Antibody 03/31/20 05:40 WBC RBC Hgb Hct MCV MCH MCHC RDW Std Deviation RDW Coeff of Gee Plt Count MPV Immature Gran % (Auto) Neut % (Auto) Lymph % (Auto) Ocean % (Auto) Eos % (Auto) Baso % (Auto) Absolute Neuts (auto) Absolute Lymphs (auto) Nucleated RBC % Differential Comment Toxic Granulation Platelet Estimate RBC Morphology Anisocytosis Microcytosis D-Dimer Quant (PE/DVT) Sodium Potassium Chloride Carbon Dioxide Anion Gap BUN Creatinine Estim Creat Clear Calc Est GFR (MDRD) Af Amer Est GFR (MDRD) Non-Af BUN/Creatinine Ratio Glucose Hemoglobin A1c Lactic Acid 2.3 H* Calcium Magnesium Iron TIBC Iron Saturation Ferritin Total Bilirubin AST ALT Alkaline Phosphatase Lactate Dehydrogenase Troponin I C-React Prot Ext Range Total Protein Albumin Globulin Albumin/Globulin Ratio Procalcitonin Urine Opiates Screen Urine Methadone Screen Ur Barbiturates Screen Ur Phencyclidine Scrn Ur Amphetamines Screen U Methamphetamin-MDMA U Benzodiazepines Scrn Urine Cocaine Screen U Cannabinoids Screen Ur Drug Screen Comment COVID-19 (PILLO) Hepatitis A IgM Ab Hepatitis A Ab Total Hep Bs Antigen Hep B Core Total Ab Hep B Core IgM Ab HIV 1&2 Antibody Microbiology 03/31/20 02:43 Mucosa - Nasopharyngeal Respiratory Panel (PCR) - Final 03/31/20 03:05 Urine, Clean Catch Streptococcus pneumoniae Antigen (M - Final 03/31/20 03:05 Urine, Clean Catch Legionella Antigen - Final Clinical Impression(s) from Imaging Studies Chest X-Ray 03/30/20 22:15 IMPRESSION: Multiple bilateral patchy areas of pulmonary opacity most consistent with nonspecific multifocal pneumonia. Electronically Signed: Gideon Merino MD at 22:37 EDT , Service support , Chest CTA 03/30/20 23:11 IMPRESSION: 1. No large central pulmonary embolus. Evaluation limited due to suboptimal contrast timing. 2. Numerous bilateral lung nodules, many of which are cavitary. Septic emboli, cavitating infection, necrotizing noninfectious granulomatous disease such as granulomatosis with polyangiitis, and metastatic disease are in the differential diagnosis. 3. Heterogeneous renal enhancement. Correlate with urinalysis. 4. Additional findings above. Individualized dose optimization techniques were used for this CT. at 0018 Reported and signed by: Andra Thomas MD Electronically Signed: Andra Thomas MD at 0:18 EDT Tel , Service support , Current Medications Acetaminophen (Tylenol) 650 mg PO Q4H PRN PRN PRN Reason: Pain Score 1-10/Temp > 100.7 F Acetaminophen (Tylenol) 500 mg PO Q4H PRN PRN PRN Reason: Temp > 100.4 F Al Hydroxide/Mg Hydroxide (Mylanta Ii) 30 ml PO Q6H PRN PRN PRN Reason: Gastric Burning Albuterol Sulfate (Ventolin Aerosols) 2.5 mg INHALATION Q2H PRN PRN PRN Reason: Dyspnea, wheezing Bisacodyl (Dulcolax) 10 mg RECTAL DAILY PRN PRN PRN Reason: Constipation Buprenorphine HCl (Buprenorphine Hcl) 0 mg SL Q8H JOEL; Taper Stop: 04/03/20 00:14 Clonidine (Catapres) 0.1 mg PO Q8H PRN PRN PRN Reason: RESTLESSNESS Dicyclomine HCl (Bentyl) 20 mg PO Q6H PRN PRN PRN Reason: Abdominal Discomfort Enoxaparin Sodium (Lovenox) 40 mg SC DAILY JOEL Last Admin: 03/31/20 02:20 Dose: 40 mg Documented by: Famotidine (Pepcid) 20 mg PO BID [facility] Last Admin: 03/31/20 02:19 Dose: 20 mg Documented by: Gabapentin (Neurontin) 300 mg PO Q8H PRN PRN PRN Reason: moderate to severe anxiety Guaifenesin (Robitussin) 10 ml PO Q4H PRN PRN PRN Reason: COUGH Hydroxyzine Pamoate (Vistaril Pamoate Capsule) 50 mg PO Q6H PRN PRN PRN Reason: mild anxiety Sodium Chloride () 250 mls @ 15 mls/hr IV .[id number] PRN PRN Reason: Saline Flush Last Admin: 03/31/20 06:13 Dose: 15 mls/hr Documented by: Sodium Chloride () 250 mls @ 15 mls/hr IV .[id number] PRN PRN Reason: Additional IVPB Infusion Piperacillin Sod/Tazobactam (Sod 3.375 gm/ Sodium Chloride) 50 mls @ 12.5 mls/hr IV Q8 JOEL Vancomycin IV Pharmacy to Dose (1 ea/ Sodium Chloride) 500 mls @ 250 mls/hr IV X1 PRN; Protocol PRN Reason: Rx to Dose Sodium Chloride () 1,000 mls @ 150 mls/hr IV .[id number] [facility] Last Infusion: 03/31/20 05:00 Dose: 150 mls/hr Documented by: Vancomycin HCl (Vancomycin) 1,000 mg in 200 mls @ 200 mls/hr IV Q8H JOEL Ibuprofen (Motrin) 600 mg PO Q8H PRN PRN PRN Reason: Pain Score 1-10 Last Admin: 03/31/20 03:28 Dose: 600 mg Documented by: Loperamide HCl (Imodium) 2 mg PO Q4H PRN PRN PRN Reason: LOOSE STOOLS Magnesium Hydroxide (Milk Of Magnesia) 30 ml PO DAILY PRN PRN PRN Reason: Constipation Melatonin (Melatonin) 3 mg PO QHS PRN PRN PRN Reason: INSOMNIA Methocarbamol (Methocarbamol) 1,500 mg PO Q6H PRN PRN PRN Reason: MUSCLE SPASM Morphine Sulfate () 4 mg IV Q3H PRN PRN PRN Reason: Pain Score 6-10 Last Admin: 03/31/20 02:30 Dose: 4 mg Documented by: Nicotine (Nicoderm Cq (Pbkc)) 14 mg TRANSDERM. DAILY JOEL Last Admin: 03/31/20 02:19 Dose: 14 mg Documented by: Nutritional Formula ([place] - [place] Flavor) 1 packet PO BIDCM JOEL Ondansetron HCl (Zofran) 4 mg IV Q8H PRN PRN PRN Reason: NAUSEA/VOMITING Ondansetron HCl (Zofran) 8 mg PO Q8H PRN PRN PRN Reason: NAUSEA Oxycodone HCl (Oxyir) 10 mg PO Q4H PRN PRN PRN Reason: Pain Score 4-5 Prochlorperazine Edisylate (Compazine Iv) 5 mg IV Q4H PRN PRN PRN Reason: Breakthrough Nausea/Vomiting Psyllium Hydrophilic Mucilloid (Metamucil) 1 packet PO DAILY PRN PRN PRN Reason: Constipation Senna (Senokot) 2 tablet PO QHS PRN PRN PRN Reason: Constipation Senna/Docusate Sodium (Senokot-S, Natasha-Colace) 2 tablet PO BID PRN PRN PRN Reason: Constipation Sodium Chloride () 10 - 40 ml IV UD PRN PRN Reason: SALINE FLUSH Last Admin: 03/31/20 02:31 Dose: 10 ml Documented by: Throat Lozenges (Cepacol Sore Throat Lozenge) 1 lozenge MUCOUS MEM Q2H PRN PRN PRN Reason: SORE THROAT Trazodone HCl (Desyrel) 50 mg PO QHS PRN PRN PRN Reason: INSOMNIA Assessment/Plan RECOMMENDATIONS: 1. Continue empiric antimicrobials. Check MRSA screen. 2. Infectious diseases consultation is pending. 3. Obtain surface echocardiogram. 4. Continue appropriate DVT prophylaxis. Continue nicotine replacement therapy. 5. Obtain orthopedic surgery consultation. IMPRESSIONS: 1. 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 Plan to continue empiric antimicrobials, while awaiting infectious diseases consultation. There is also clinical concern for potential septic arthritis given the patient significant shoulder pain. Therefore, I would recommend that we obtain an orthopedic surgery consultation for further evaluation. Echocardiogram is currently pending to evaluate for valvular vegetations. 2. Septic emboli The patient CT chest did reveal evidence of what appears to be septic emboli in the setting of infective endocarditis. Oxygen saturations are stable at this time. Plan to continue current supportive measures, including antimicrobial therapy as noted above. 3. History of heroin and tobacco dependency Complicates care, management, recovery and prognosis. I personally spent 4 minutes discussing the deleterious effects of continued tobacco use with the patient, including modalities which could be utilized to achieve a smoke-free lifestyle. Nicotine replacement therapy will be utilized while the patient is admitted to the hospital. This note was generated with [employer] dictation software. It may contain incorrect words, spelling, and punctuation that were not noted in checking the note before signing. Inpatient E&M: 16559 Init Hosp L3 - Behavior Interventions Behavior Intervention: 01476 Smoking Cessation 3-10 min
--- NOTE | 2020-03-31 07:14 | PCM.PN.HOSP ---
Patient Problems: Active and Suspected Problems Septic pulmonary embolism (Acute) Severe sepsis (Acute) IV drug abuse (Acute) Reason for Visit: Severe sepsis Subjective: Patient is a 34-year-old gentleman with history of polysubstance abuse who presented with progressive generalized weakness fever stiff legs over 4-day. Assessment of severe sepsis secondary to suspected endocarditis need admitted intensive care unit for further management Objective: GENERAL: ill looking HEENT: Atraumatic; EYES; Anicteric, Normal Conjunctiva NECK; supple, normal thyroid, RESPIRATORY: Diminished to auscultation CARDIOVASCULAR: Regular S1 S2, GI: soft, normoactive bowel sounds, : No Renal angle tenderness; EXTREMITIES: No edema, no clubbing, MUSCULOSKELETAL: Both shoulders are swollen and tender with restricted movement NEURO: Awake; no lateralizing signs. SKIN: No Rash PSYCH; Flat affect Vitals/I&O's: Vital Signs Temp Pulse Resp BP Pulse Ox 100.1 F H 94 18 122/82 H 99 03/31/20 06:00 03/31/20 07:00 03/31/20 07:00 03/31/20 07:00 03/31/20 07:00 Oxygen Delivery Method Room Air Weight: 81.3 kg Body Mass Index (BMI) 23.3 Intake and Output for Last 24 Hours 03/29/20 03/30/20 03/31/20 23:59 23:59 23:59 Intake Total 1050 / 1050 3184.65 / 3184.65 Output Total 540 / 540 Balance 1050 / 1050 2644.65 / 2644.65 Microbiology Past 72 Hours 03/31/20 02:43 Mucosa - Nasopharyngeal Respiratory Panel (PCR) - Final 03/31/20 03:05 Urine, Clean Catch Streptococcus pneumoniae Antigen (M - Final 03/31/20 03:05 Urine, Clean Catch Legionella Antigen - Final Laboratory Results 03/30/20 21:30: WBC 14.1 H, RBC 3.95 L, Hgb 10.6 L, Hct 31.5 L, MCV 79.7 L, MCH 26.8 L, MCHC 33.7, RDW Std Deviation 41.8, RDW Coeff of Gee 14.4, Plt Count 126 L, MPV 12.3 H, Immature Gran % (Auto) 2.600 H, Neut % (Auto) 85.7 H, Lymph % (Auto) 5.0 L, Glenn % (Auto) 6.3, Eos % (Auto) 0.1, Baso % (Auto) 0.3, Absolute Neuts (auto) 12.0 H, Absolute Lymphs (auto) 0.70 L, Nucleated RBC % 0, Toxic Granulation 1+, Platelet Estimate SLT DEC, RBC Morphology N CHROM, Anisocytosis RARE, Microcytosis RARE 03/30/20 21:30: Sodium 132 L, Potassium 3.6, Chloride 97 L, Carbon Dioxide 27.0, Anion Gap 8, BUN 20 H, Creatinine 1.07, Estim Creat Clear Calc 104.76, Est GFR (MDRD) Af Amer 100, Est GFR (MDRD) Non-Af 83, BUN/Creatinine Ratio 18.7, Glucose 132 H, Calcium 7.6 L, Total Bilirubin 0.70, AST 22, ALT 21, Alkaline Phosphatase 91, Troponin I < 0.015, Total Protein 6.8, Albumin 1.9 L, Globulin 4.9 H, Albumin/Globulin Ratio 0.4 L 03/30/20 21:30: Lactic Acid 2.7 H* 03/30/20 21:50: COVID-19 (PILLO) Not Detected 03/31/20 02:10: Lactic Acid 3.1 H* 03/31/20 02:10: D-Dimer Quant (PE/DVT) > 20.00 H* 03/31/20 02:10: Magnesium 2.2, Iron 14 L, TIBC 143 L, Iron Saturation 9.8 L, Ferritin 764 H, Lactate Dehydrogenase 135, C-React Prot Ext Range 156.00 H 03/31/20 02:10: Procalcitonin 0.92 H, HIV 1&2 Antibody Non-Reactive 03/31/20 02:10: Hepatitis A IgM Ab Pending, Hepatitis A Ab Total Pending, Hep Bs Antigen Pending, Hep B Core Total Ab Pending, Hep B Core IgM Ab Pending 03/31/20 02:10: Hemoglobin A1c 5.7 H 03/31/20 02:10: WBC 14.1 H, RBC 3.81 L, Hgb 10.3 L, Hct 30.6 L, MCV 80.3, MCH 27.0, MCHC 33.7, RDW Std Deviation 42.4, RDW Coeff of Gee 14.6, Plt Count 121 L, MPV 11.2, Immature Gran % (Auto) 2.100 H, Neut % (Auto) 84.2 H, Lymph % (Auto) 6.8 L, Glenn % (Auto) 6.5, Eos % (Auto) 0.2, Baso % (Auto) 0.2, Absolute Neuts (auto) 11.8 H, Absolute Lymphs (auto) 0.96, Nucleated RBC % 0, Differential Comment SCANNED 03/31/20 02:10: Troponin I < 0.015 03/31/20 03:05: Urine Opiates Screen POSITIVE H, Urine Methadone Screen NEGATIVE, Ur Barbiturates Screen NEGATIVE, Ur Phencyclidine Scrn NEGATIVE, Ur Amphetamines Screen NEGATIVE, U Methamphetamin-MDMA NEGATIVE, U Benzodiazepines Scrn NEGATIVE, Urine Cocaine Screen NEGATIVE, U Cannabinoids Screen NEGATIVE, Ur Drug Screen Comment 03/31/20 05:40: Sodium 138, Potassium 3.6, Chloride 107, Carbon Dioxide 26.0, Anion Gap 5, BUN 16, Creatinine 0.86, Estim Creat Clear Calc 130.34, Est GFR (MDRD) Af Amer 129, Est GFR (MDRD) Non-Af 107, BUN/Creatinine Ratio 18.6, Glucose 129 H, Calcium 6.9 L, Total Bilirubin 0.50, AST 19, ALT 16, Alkaline Phosphatase 75, Total Protein 5.9 L, Albumin 1.5 L, Globulin 4.4 H, Albumin/Globulin Ratio 0.3 L 03/31/20 05:40: Troponin I < 0.015 03/31/20 05:40: Lactic Acid 2.3 H* Current Medications Acetaminophen (Tylenol) 650 mg PO Q4H PRN PRN PRN Reason: Pain Score 1-10/Temp > 100.7 F Acetaminophen (Tylenol) 500 mg PO Q4H PRN PRN PRN Reason: Temp > 100.4 F Al Hydroxide/Mg Hydroxide (Mylanta Ii) 30 ml PO Q6H PRN PRN PRN Reason: Gastric Burning Albuterol Sulfate (Ventolin Aerosols) 2.5 mg INHALATION Q2H PRN PRN PRN Reason: Dyspnea, wheezing Bisacodyl (Dulcolax) 10 mg RECTAL DAILY PRN PRN PRN Reason: Constipation Buprenorphine HCl (Buprenorphine Hcl) 0 mg SL Q8H JOEL; Taper Stop: 04/03/20 00:14 Clonidine (Catapres) 0.1 mg PO Q8H PRN PRN PRN Reason: RESTLESSNESS Dicyclomine HCl (Bentyl) 20 mg PO Q6H PRN PRN PRN Reason: Abdominal Discomfort Enoxaparin Sodium (Lovenox) 40 mg SC DAILY [facility] Last Admin: 03/31/20 02:20 Dose: 40 mg Documented by: Famotidine (Pepcid) 20 mg PO BID [facility] Last Admin: 03/31/20 02:19 Dose: 20 mg Documented by: Gabapentin (Neurontin) 300 mg PO Q8H PRN PRN PRN Reason: moderate to severe anxiety Guaifenesin (Robitussin) 10 ml PO Q4H PRN PRN PRN Reason: COUGH Hydroxyzine Pamoate (Vistaril Pamoate Capsule) 50 mg PO Q6H PRN PRN PRN Reason: mild anxiety Sodium Chloride () 250 mls @ 15 mls/hr IV .[id number] PRN PRN Reason: Saline Flush Last Admin: 03/31/20 06:13 Dose: 15 mls/hr Documented by: Sodium Chloride () 250 mls @ 15 mls/hr IV .[id number] PRN PRN Reason: Additional IVPB Infusion Piperacillin Sod/Tazobactam (Sod 3.375 gm/ Sodium Chloride) 50 mls @ 12.5 mls/hr IV Q8 [facility] Last Infusion: 03/31/20 07:00 Dose: 12.5 mls/hr Documented by: Vancomycin IV Pharmacy to Dose (1 ea/ Sodium Chloride) 500 mls @ 250 mls/hr IV X1 PRN; Protocol PRN Reason: Rx to Dose Sodium Chloride () 1,000 mls @ 150 mls/hr IV .Q6H40M [facility] Last Infusion: 03/31/20 07:00 Dose: 150 mls/hr Documented by: Vancomycin HCl (Vancomycin) 1,000 mg in 200 mls @ 200 mls/hr IV Q8H [facility] Ibuprofen (Motrin) 600 mg PO Q8H PRN PRN PRN Reason: Pain Score 1-10 Last Admin: 03/31/20 03:28 Dose: 600 mg Documented by: Loperamide HCl (Imodium) 2 mg PO Q4H PRN PRN PRN Reason: LOOSE STOOLS Magnesium Hydroxide (Milk Of Magnesia) 30 ml PO DAILY PRN PRN PRN Reason: Constipation Melatonin (Melatonin) 3 mg PO QHS PRN PRN PRN Reason: INSOMNIA Methocarbamol (Methocarbamol) 1,500 mg PO Q6H PRN PRN PRN Reason: MUSCLE SPASM Morphine Sulfate () 4 mg IV Q3H PRN PRN PRN Reason: Pain Score 6-10 Last Admin: 03/31/20 02:30 Dose: 4 mg Documented by: Nicotine (Nicoderm Cq (Pbkc)) 14 mg TRANSDERM. DAILY JOEL Last Admin: 03/31/20 02:19 Dose: 14 mg Documented by: Nutritional Formula (Simón - [place] Flavor) 1 packet PO BIDCM [facility] Ondansetron HCl (Zofran) 4 mg IV Q8H PRN PRN PRN Reason: NAUSEA/VOMITING Ondansetron HCl (Zofran) 8 mg PO Q8H PRN PRN PRN Reason: NAUSEA Oxycodone HCl (Oxyir) 10 mg PO Q4H PRN PRN PRN Reason: Pain Score 4-5 Prochlorperazine Edisylate (Compazine Iv) 5 mg IV Q4H PRN PRN PRN Reason: Breakthrough Nausea/Vomiting Psyllium Hydrophilic Mucilloid (Metamucil) 1 packet PO DAILY PRN PRN PRN Reason: Constipation Senna (Senokot) 2 tablet PO QHS PRN PRN PRN Reason: Constipation Senna/Docusate Sodium (Senokot-S, Natasha-Colace) 2 tablet PO BID PRN PRN PRN Reason: Constipation Sodium Chloride () 10 - 40 ml IV UD PRN PRN Reason: SALINE FLUSH Last Admin: 03/31/20 02:31 Dose: 10 ml Documented by: Throat Lozenges (Cepacol Sore Throat Lozenge) 1 lozenge MUCOUS MEM Q2H PRN PRN PRN Reason: SORE THROAT Trazodone HCl (Desyrel) 50 mg PO QHS PRN PRN PRN Reason: INSOMNIA STROKE Vital Signs/Narrative: Vital Signs Temp Pulse Resp BP Pulse Ox 03/31/20 07:00 94 18 122/82 H 99 03/31/20 06:00 100.1 F H 106 H 26 H 106/64 99 03/31/20 05:00 87 33 H 128/67 H 100 03/31/20 04:35 98.9 F 03/31/20 04:00 89 31 H 122/65 H 100 03/31/20 03:59 86 36 H 129/66 H 100 Medical Necessity - Tobacco Use Smoking Status: Current every day smoker Tobacco Use: Cigarettes Assessment/Plan All Active Problems Septic pulmonary embolism (Acute) Severe sepsis (Acute) IV drug abuse (Acute) Patient is a 34-year-old gentleman with history of polysubstance abuse who presented with progressive generalized weakness fever stiff legs over 4-day. Assessment of severe sepsis secondary to suspected endocarditis need admitted intensive care unit for further management 1. Severe sepsis secondary to bacterial endocarditis with septic emboli to the lungs possibly to shoulders resulting in septic arthritis. -Imaging studies obtained on admission demonstrated Numerous bilateral lung nodules, many of which are cavitary. Blood cultures were obtained on admission patient started on broad-spectrum antibiotic with vancomycin and Zosyn with consultation placed with pulmonary medicine and infectious disease. Blood cultures so far positive for gram-positive cocci 2. Opioid dependence ?In acute opioid withdrawal; currently being managed with Buprenorphine 3. Mild hyponatremia ?Attributed to hypovolemia resuscitated with IV fluid 4. Polysubstance abuse ?Counseled on cessation 5. History of chronic hep C ?Patient to follow-up with PCP for subsequent management 6. Tobacco dependence - Counseled on cessation, offered nicotine patch for tobacco cravings 7. Hypoalbuminemia -Secondary to decreased dietary intake as a result of mild malnutrition 8. Hypocalcemia -Probably related to patient hypoalbuminemia ionized calcium ordered 9. Iron deficiency anemia ?Do suspect decreased oral iron intake patient will be placed on iron supplementation 10. DVT prophylaxis - On enoxaparin Clinical Impression(s) from Imaging Studies Chest X-Ray 03/30/20 22:15 IMPRESSION: Multiple bilateral patchy areas of pulmonary opacity most consistent with nonspecific multifocal pneumonia. Electronically Signed: Gideon Merino MD at 22:37 EDT , Service support , Chest CTA 03/30/20 23:11 IMPRESSION: 1. No large central pulmonary embolus. Evaluation limited due to suboptimal contrast timing. 2. Numerous bilateral lung nodules, many of which are cavitary. Septic emboli, cavitating infection, necrotizing noninfectious granulomatous disease such as granulomatosis with polyangiitis, and metastatic disease are in the differential diagnosis. 3. Heterogeneous renal enhancement. Correlate with urinalysis. 4. Additional findings above. Individualized dose optimization techniques were used for this CT. at 0018 Reported and signed by: Andra Thomas MD Electronically Signed: Andra Thomas MD at 0:18 EDT Tel , Service support , Chest X-Ray 03/31/20 05:55 IMPRESSION: Bilateral peripheral nodules/masses some of which are cavitating without change. Consider septic emboli among others. Electronically Signed: Evon Dey MD at 6:51 EDT , Service support , Active Medications Acetaminophen (Tylenol) 650 mg PO Q4H PRN PRN PRN Reason: Pain Score 1-10/Temp > 100.7 F Al Hydroxide/Mg Hydroxide (Mylanta Ii) 30 ml PO Q6H PRN PRN PRN Reason: Gastric Burning Albuterol Sulfate (Ventolin Aerosols) 2.5 mg INHALATION Q2H PRN PRN PRN Reason: Dyspnea, wheezing Bisacodyl (Dulcolax) 10 mg RECTAL DAILY PRN PRN PRN Reason: Constipation Buprenorphine HCl (Buprenorphine Hcl) 0 mg SL Q8H [facility]; Taper Stop: 04/03/20 00:14 Clonidine (Catapres) 0.1 mg PO Q8H PRN PRN PRN Reason: RESTLESSNESS Dicyclomine HCl (Bentyl) 20 mg PO Q6H PRN PRN PRN Reason: Abdominal Discomfort Enoxaparin Sodium (Lovenox) 40 mg SC DAILY [facility] Last Admin: 03/31/20 02:20 Dose: 40 mg Documented by: Famotidine (Pepcid) 20 mg PO BID [facility] Last Admin: 03/31/20 02:19 Dose: 20 mg Documented by: Gabapentin (Neurontin) 300 mg PO Q8H PRN PRN PRN Reason: moderate to severe anxiety Guaifenesin (Robitussin) 10 ml PO Q4H PRN PRN PRN Reason: COUGH Hydroxyzine Pamoate (Vistaril Pamoate Capsule) 50 mg PO Q6H PRN PRN PRN Reason: mild anxiety Sodium Chloride () 250 mls @ 15 mls/hr IV .[id number] PRN PRN Reason: Saline Flush Last Infusion: 03/31/20 08:00 Dose: 0 mls/hr Documented by: Sodium Chloride () 250 mls @ 15 mls/hr IV .[id number] PRN PRN Reason: Additional IVPB Infusion Piperacillin Sod/Tazobactam (Sod 3.375 gm/ Sodium Chloride) 50 mls @ 12.5 mls/hr IV Q8 JOEL Last Infusion: 03/31/20 07:00 Dose: 12.5 mls/hr Documented by: Vancomycin IV Pharmacy to Dose (1 ea/ Sodium Chloride) 500 mls @ 250 mls/hr IV X1 PRN; Protocol PRN Reason: Rx to Dose Sodium Chloride () 1,000 mls @ 150 mls/hr IV .Q6H40M [facility] Last Admin: 03/31/20 09:49 Dose: Not Given Documented by: Vancomycin HCl (Vancomycin) 1,000 mg in 200 mls @ 200 mls/hr IV Q8H [facility] Last Infusion: 03/31/20 09:28 Dose: Infused Documented by: Ibuprofen (Motrin) 600 mg PO Q8H PRN PRN PRN Reason: Pain Score 1-10 Last Admin: 03/31/20 03:28 Dose: 600 mg Documented by: Loperamide HCl (Imodium) 2 mg PO Q4H PRN PRN PRN Reason: LOOSE STOOLS Magnesium Hydroxide (Milk Of Magnesia) 30 ml PO DAILY PRN PRN PRN Reason: Constipation Melatonin (Melatonin) 3 mg PO QHS PRN PRN PRN Reason: INSOMNIA Methocarbamol (Methocarbamol) 1,500 mg PO Q6H PRN PRN PRN Reason: MUSCLE SPASM Morphine Sulfate () 4 mg IV Q3H PRN PRN PRN Reason: Pain Score 6-10 Last Admin: 03/31/20 09:28 Dose: 4 mg Documented by: Nicotine (Nicoderm Cq (Pbkc)) 14 mg TRANSDERM. DAILY [facility] Last Admin: 03/31/20 02:19 Dose: 14 mg Documented by: Nutritional Formula (Simón - [place] Flavor) 1 packet PO BIDCM [facility] Last Admin: 03/31/20 08:10 Dose: Not Given Documented by: Ondansetron HCl (Zofran) 4 mg IV Q8H PRN PRN PRN Reason: NAUSEA/VOMITING Ondansetron HCl (Zofran) 8 mg PO Q8H PRN PRN PRN Reason: NAUSEA Oxycodone HCl (Oxyir) 10 mg PO Q4H PRN PRN PRN Reason: Pain Score 4-5 Prochlorperazine Edisylate (Compazine Iv) 5 mg IV Q4H PRN PRN PRN Reason: Breakthrough Nausea/Vomiting Psyllium Hydrophilic Mucilloid (Metamucil) 1 packet PO DAILY PRN PRN PRN Reason: Constipation Senna (Senokot) 2 tablet PO QHS PRN PRN PRN Reason: Constipation Senna/Docusate Sodium (Senokot-S, Natasha-Colace) 2 tablet PO BID PRN PRN PRN Reason: Constipation Sodium Chloride () 10 - 40 ml IV UD PRN PRN Reason: SALINE FLUSH Last Admin: 03/31/20 08:28 Dose: 10 ml Documented by: Throat Lozenges (Cepacol Sore Throat Lozenge) 1 lozenge MUCOUS MEM Q2H PRN PRN PRN Reason: SORE THROAT Trazodone HCl (Desyrel) 50 mg PO QHS PRN PRN PRN Reason: INSOMNIA Inpatient E&M: 72045 [facility] Hosp L3
[2020-03-31] MEDS: Vancomycin IV 1,000 MG/200 ML BAG 200 MG IV ×2 (08:28→15:43)
[2020-03-31 09:40] LABS: M R Staph aureus DNA By PCR POSITIVE (Negative); Probe Check PASS
[2020-03-31 09:42] LABS: Reflex Lactate? Y
--- NOTE | 2020-03-31 10:17 | CASEMGMT ---
Insurance review for hospitals In-network with [facility] Insurance if transfer is recommended is as follows: [facility], [place], CC, [facility], [facility], [place], [facility] ([facility]), and . Meagan VILLALBAN RN CM
[2020-03-31] MEDS: oxyCODONE 5 MG Tablet 10 MG PO ×3 (10:23→20:58)
[2020-03-31] MEDS: hydrOXYzine PAM 25 MG Capsule 50 MG PO (13:01)
--- NOTE | 2020-03-31 14:20 | CON.PCM_ITS ---
Problem List (1) Endocarditis Status: Acute Reason for Consult: endocarditis Consulted by: Dr. Cain History of Present Illness: The patient is a 34 year old M with IVDU and hep C untreated who presented last night to the ED with one week of fever, chills, not feeling well, mild L sided chest pain, and bilateral shoulder pain. Unable to move BUE due to pain. Mild neck soreness. Had some changes in taste. No headache, no sore throat, no aches elsewhere in his body. Injects in both arms, last used 2-3 days ago. No abscesses, but does have sore on L mid chest which has been slowly healing with no drainage. No n/v. Some recent diarrhea. Came to ED, CT showed bilat PE, Bcx pcr with MRSA. Admitted on vanc/zosyn, still cannot move arms due to pain. Full ROS performed and neg except as noted above. - Medical History Surgical History: IVDU hep C Allergies/Adverse Reactions: Allergies No Known Allergies Allergy (Verified 03/30/20 21:18) Home Medications: Ambulatory Orders Medication Instructions Recorded NK 03/30/20 - Social History Tobacco Use: cigarettes SMOKING STATUS:: Current every day smoker Drug Use: heroin Vital Signs Temp Pulse Resp BP Pulse Ox 97.5 F L 94 32 H 124/73 H 95 03/31/20 13:00 03/31/20 13:00 03/31/20 13:00 03/31/20 13:00 03/31/20 13:00 Oxygen Delivery Method Room Air Weight: 81.3 kg Body Mass Index (BMI) 23.3 Microbiology Past 72 Hours 03/30/20 20:50 Blood Culture - Preliminary Blood Culture (Wb) - Right Hand Gram Positive Cocci 03/30/20 21:55 Blood Culture - Final Blood Culture (Wb) - Right Forearm Meth. resistant Staph. aureus 03/31/20 10:15 Stool Occult Blood (HECTOR) - Final Stool 03/31/20 02:43 Respiratory Panel (PCR) - Final Mucosa - Nasopharyngeal 03/31/20 03:05 Streptococcus pneumoniae Antigen (M - Final Urine, Clean Catch 03/31/20 03:05 Legionella Antigen - Final Urine, Clean Catch Laboratory Tests Past 24 Hrs 03/30/20 03/30/20 03/30/20 21:30 21:30 21:30 WBC 14.1 H RBC 3.95 L Hgb 10.6 L Hct 31.5 L MCV 79.7 L MCH 26.8 L MCHC 33.7 RDW Std Deviation 41.8 RDW Coeff of Gee 14.4 Plt Count 126 L MPV 12.3 H Immature Gran % (Auto) 2.600 H Neut % (Auto) 85.7 H Lymph % (Auto) 5.0 L [place] % (Auto) 6.3 Eos % (Auto) 0.1 Baso % (Auto) 0.3 Absolute Neuts (auto) 12.0 H Absolute Lymphs (auto) 0.70 L Nucleated RBC % 0 Differential Comment Toxic Granulation 1+ Platelet Estimate SLT DEC RBC Morphology N CHROM Anisocytosis RARE Microcytosis RARE D-Dimer Quant (PE/DVT) Sodium 132 L Potassium 3.6 Chloride 97 L Carbon Dioxide 27.0 Anion Gap 8 BUN 20 H Creatinine 1.07 Estim Creat Clear Calc 104.76 Est GFR (MDRD) Af Amer 100 Est GFR (MDRD) Non-Af 83 BUN/Creatinine Ratio 18.7 Glucose 132 H Hemoglobin A1c Lactic Acid 2.7 H* Calcium 7.6 L Magnesium Iron TIBC Iron Saturation Ferritin Total Bilirubin 0.70 AST 22 ALT 21 Alkaline Phosphatase 91 Lactate Dehydrogenase Troponin I < 0.015 C-React Prot Ext Range Total Protein 6.8 Albumin 1.9 L Globulin 4.9 H Albumin/Globulin Ratio 0.4 L Procalcitonin Urine Opiates Screen Urine Methadone Screen Ur Barbiturates Screen Ur Phencyclidine Scrn Ur Amphetamines Screen U Methamphetamin-MDMA U Benzodiazepines Scrn Urine Cocaine Screen U Cannabinoids Screen Ur Drug Screen Comment COVID-19 (PILLO) Hepatitis A IgM Ab Hepatitis A Ab Total Hep Bs Antigen Hep B Core Total Ab Hep B Core IgM Ab HIV 1&2 Antibody MRSA (PCR) 03/30/20 03/31/20 03/31/20 21:50 02:10 02:10 WBC RBC Hgb Hct MCV MCH MCHC RDW Std Deviation RDW Coeff of Gee Plt Count MPV Immature Gran % (Auto) Neut % (Auto) Lymph % (Auto) [place] % (Auto) Eos % (Auto) Baso % (Auto) Absolute Neuts (auto) Absolute Lymphs (auto) Nucleated RBC % Differential Comment Toxic Granulation Platelet Estimate RBC Morphology Anisocytosis Microcytosis D-Dimer Quant (PE/DVT) > 20.00 H* Sodium Potassium Chloride Carbon Dioxide Anion Gap BUN Creatinine Estim Creat Clear Calc Est GFR (MDRD) Af Amer Est GFR (MDRD) Non-Af BUN/Creatinine Ratio Glucose Hemoglobin A1c Lactic Acid 3.1 H* Calcium Magnesium Iron TIBC Iron Saturation Ferritin Total Bilirubin AST ALT Alkaline Phosphatase Lactate Dehydrogenase Troponin I C-React Prot Ext Range Total Protein Albumin Globulin Albumin/Globulin Ratio Procalcitonin Urine Opiates Screen Urine Methadone Screen Ur Barbiturates Screen Ur Phencyclidine Scrn Ur Amphetamines Screen U Methamphetamin-MDMA U Benzodiazepines Scrn Urine Cocaine Screen U Cannabinoids Screen Ur Drug Screen Comment COVID-19 (PILLO) Not Detected Hepatitis A IgM Ab Hepatitis A Ab Total Hep Bs Antigen Hep B Core Total Ab Hep B Core IgM Ab HIV 1&2 Antibody MRSA (PCR) 03/31/20 03/31/20 03/31/20 02:10 02:10 02:10 WBC RBC Hgb Hct MCV MCH MCHC RDW Std Deviation RDW Coeff of Gee Plt Count MPV Immature Gran % (Auto) Neut % (Auto) Lymph % (Auto) [place] % (Auto) Eos % (Auto) Baso % (Auto) Absolute Neuts (auto) Absolute Lymphs (auto) Nucleated RBC % Differential Comment Toxic Granulation Platelet Estimate RBC Morphology Anisocytosis Microcytosis D-Dimer Quant (PE/DVT) Sodium Potassium Chloride Carbon Dioxide Anion Gap BUN Creatinine Estim Creat Clear Calc Est GFR (MDRD) Af Amer Est GFR (MDRD) Non-Af BUN/Creatinine Ratio Glucose Hemoglobin A1c Lactic Acid Calcium Magnesium 2.2 Iron 14 L TIBC 143 L Iron Saturation 9.8 L Ferritin 764 H Total Bilirubin AST ALT Alkaline Phosphatase Lactate Dehydrogenase 135 Troponin I C-React Prot Ext Range 156.00 H Total Protein Albumin Globulin Albumin/Globulin Ratio Procalcitonin 0.92 H Urine Opiates Screen Urine Methadone Screen Ur Barbiturates Screen Ur Phencyclidine Scrn Ur Amphetamines Screen U Methamphetamin-MDMA U Benzodiazepines Scrn Urine Cocaine Screen U Cannabinoids Screen Ur Drug Screen Comment COVID-19 (PILLO) Hepatitis A IgM Ab Pending Hepatitis A Ab Total Pending Hep Bs Antigen Pending Hep B Core Total Ab Pending Hep B Core IgM Ab Pending HIV 1&2 Antibody Non-Reactive MRSA (PCR) 03/31/20 03/31/20 03/31/20 02:10 02:10 02:10 WBC 14.1 H RBC 3.81 L Hgb 10.3 L Hct 30.6 L MCV 80.3 MCH 27.0 MCHC 33.7 RDW Std Deviation 42.4 RDW Coeff of Gee 14.6 Plt Count 121 L MPV 11.2 Immature Gran % (Auto) 2.100 H Neut % (Auto) 84.2 H Lymph % (Auto) 6.8 L [place] % (Auto) 6.5 Eos % (Auto) 0.2 Baso % (Auto) 0.2 Absolute Neuts (auto) 11.8 H Absolute Lymphs (auto) 0.96 Nucleated RBC % 0 Differential Comment SCANNED Toxic Granulation Platelet Estimate RBC Morphology Anisocytosis Microcytosis D-Dimer Quant (PE/DVT) Sodium Potassium Chloride Carbon Dioxide Anion Gap BUN Creatinine Estim Creat Clear Calc Est GFR (MDRD) Af Amer Est GFR (MDRD) Non-Af BUN/Creatinine Ratio Glucose Hemoglobin A1c 5.7 H Lactic Acid Calcium Magnesium Iron TIBC Iron Saturation Ferritin Total Bilirubin AST ALT Alkaline Phosphatase Lactate Dehydrogenase Troponin I < 0.015 C-React Prot Ext Range Total Protein Albumin Globulin Albumin/Globulin Ratio Procalcitonin Urine Opiates Screen Urine Methadone Screen Ur Barbiturates Screen Ur Phencyclidine Scrn Ur Amphetamines Screen U Methamphetamin-MDMA U Benzodiazepines Scrn Urine Cocaine Screen U Cannabinoids Screen Ur Drug Screen Comment COVID-19 (PILLO) Hepatitis A IgM Ab Hepatitis A Ab Total Hep Bs Antigen Hep B Core Total Ab Hep B Core IgM Ab HIV 1&2 Antibody MRSA (PCR) 03/31/20 03/31/20 03/31/20 03:05 05:40 05:40 WBC RBC Hgb Hct MCV MCH MCHC RDW Std Deviation RDW Coeff of Gee Plt Count MPV Immature Gran % (Auto) Neut % (Auto) Lymph % (Auto) [place] % (Auto) Eos % (Auto) Baso % (Auto) Absolute Neuts (auto) Absolute Lymphs (auto) Nucleated RBC % Differential Comment Toxic Granulation Platelet Estimate RBC Morphology Anisocytosis Microcytosis D-Dimer Quant (PE/DVT) Sodium 138 Potassium 3.6 Chloride 107 Carbon Dioxide 26.0 Anion Gap 5 BUN 16 Creatinine 0.86 Estim Creat Clear Calc 130.34 Est GFR (MDRD) Af Amer 129 Est GFR (MDRD) Non-Af 107 BUN/Creatinine Ratio 18.6 Glucose 129 H Hemoglobin A1c Lactic Acid Calcium 6.9 L Magnesium Iron TIBC Iron Saturation Ferritin Total Bilirubin 0.50 AST 19 ALT 16 Alkaline Phosphatase 75 Lactate Dehydrogenase Troponin I < 0.015 C-React Prot Ext Range Total Protein 5.9 L Albumin 1.5 L Globulin 4.4 H Albumin/Globulin Ratio 0.3 L Procalcitonin Urine Opiates Screen POSITIVE H Urine Methadone Screen NEGATIVE Ur Barbiturates Screen NEGATIVE Ur Phencyclidine Scrn NEGATIVE Ur Amphetamines Screen NEGATIVE U Methamphetamin-MDMA NEGATIVE U Benzodiazepines Scrn NEGATIVE Urine Cocaine Screen NEGATIVE U Cannabinoids Screen NEGATIVE Ur Drug Screen Comment COVID-19 (PILLO) Hepatitis A IgM Ab Hepatitis A Ab Total Hep Bs Antigen Hep B Core Total Ab Hep B Core IgM Ab HIV 1&2 Antibody MRSA (PCR) 03/31/20 03/31/20 05:40 08:10 WBC RBC Hgb Hct MCV MCH MCHC RDW Std Deviation RDW Coeff of Gee Plt Count MPV Immature Gran % (Auto) Neut % (Auto) Lymph % (Auto) [place] % (Auto) Eos % (Auto) Baso % (Auto) Absolute Neuts (auto) Absolute Lymphs (auto) Nucleated RBC % Differential Comment Toxic Granulation Platelet Estimate RBC Morphology Anisocytosis Microcytosis D-Dimer Quant (PE/DVT) Sodium Potassium Chloride Carbon Dioxide Anion Gap BUN Creatinine Estim Creat Clear Calc Est GFR (MDRD) Af Amer Est GFR (MDRD) Non-Af BUN/Creatinine Ratio Glucose Hemoglobin A1c Lactic Acid 2.3 H* Calcium Magnesium Iron TIBC Iron Saturation Ferritin Total Bilirubin AST ALT Alkaline Phosphatase Lactate Dehydrogenase Troponin I C-React Prot Ext Range Total Protein Albumin Globulin Albumin/Globulin Ratio Procalcitonin Urine Opiates Screen Urine Methadone Screen Ur Barbiturates Screen Ur Phencyclidine Scrn Ur Amphetamines Screen U Methamphetamin-MDMA U Benzodiazepines Scrn Urine Cocaine Screen U Cannabinoids Screen Ur Drug Screen Comment COVID-19 (PILLO) Hepatitis A IgM Ab Hepatitis A Ab Total Hep Bs Antigen Hep B Core Total Ab Hep B Core IgM Ab HIV 1&2 Antibody MRSA (PCR) POSITIVE H - Other Studies Radiology: [] reviewed Other Studies: [] Route of nutrition/ use of supplements: [] Nutritional Intake: [] IV Site: [] Robins Catheter: [] - Physical Exam General: Alert, Cooperative, - - ill appearing HEENT: Atraumatic, PERRLA, EOMI, - - multiple rotted/cracked teeth Neck: Supple, No Nodes, - - mild soreness with movement Lungs: Clear to auscultation, Diminished Cardiovascular: Murmur, Tachycardic Abdomen: Soft, Non Tender, Non-Distended Extremities: No edema, - Skin: Ulcer/ Wound - small shallow wound on L mid back with no drainage or induration IV Site: Peripheral, without redness Musculoskeletal: - - Both shoulders with redness or swelling, but tender to touch and unable to move due to pain. No spine tenderness to palpation. No other joint pain/swelling Neurological: Cranial nerves II-XII grossly intact - Assessment/Plan Antibiotics: [] Assessment/Plan: [] Active and Suspected Problems Septic pulmonary embolism (Acute) Severe sepsis (Acute) IV drug abuse (Acute) severe sepsis due to MRSA TV endocarditis per PCR with bilateral septic lung emboli and suspected bilateral shoulder septic arthritis - splinter hemorrhage x2 seen on R index finger. H/o hep C, untreated. HIV neg here and hep B studies pending. Triscupid veg seen on TTE 0.9x1.3cm. Given the amount of pain in both shoulders and size of his veg, I think he needs surgical evals. Lower suspicion for epidural abscess as the source of his pain/inability to move those joints. Will get CTs of shoulders. Cont vanc/zosyn. Recommend transfer to tertiary care particularly if ortho is not available. Covid was neg. Will follow, thank you, d/w Dr. Martinez and nursing
--- NOTE | 2020-03-31 16:26 | CON.PCM_ITS ---
Reason for Consult Date of Consultation: 03/31/20 History of Present Illness: The patient is a 34 year old M admitted for sepsis opiate withdrawal myalgia recent IV drug use heroin and opiates found to have bilateral cavitating lung nodules in the lungs and endocarditis with increasing shoulder pain over the past 5 days with limited range of motion no prior history of shoulder surgery or injury. Past Medical History Allergies No Known Allergies Allergy (Verified 03/30/20 21:18) Home Medications: Ambulatory Orders Medication Instructions Recorded NK 03/30/20 Surgical History: - - Right leg abscess surgery early 2019 Lives: Alone Smoking Status: Current every day smoker Tobacco Use: Cigarettes Alcohol: None Drugs: Heroin - Patient with ongoing IV heroin usage, relapsed recently has been using for at least the last 4 weeks but had been clean for several months prior to this. - *Family History Maternal History Items: Diabetes Paternal History Items: - - Patient denies any market paternal family history of heart disease, diabetes, cancer but states he does not know his history well. Patient Problems: Active and Suspected Problems Septic pulmonary embolism (Acute) Severe sepsis (Acute) IV drug abuse (Acute) Endocarditis (Acute) - Physical Exam Vitals/I&O's: Vital Signs Temp Pulse Resp BP Pulse Ox 97.5 F L 88 23 H 106/73 98 03/31/20 13:00 03/31/20 16:20 03/31/20 16:00 03/31/20 16:00 03/31/20 16:00 Oxygen Delivery Method Room Air Weight: 179 lb 3.773 oz Body Mass Index (BMI) 23.3 Intake and Output for Last 24 Hours 03/29/20 03/30/20 03/31/20 23:59 23:59 23:59 Intake Total 1050 / 1050 4324.25 / 4324.25 Output Total 1165 / 1165 Balance 1050 / 1050 3159.25 / 3159.25 General: Alert, Cooperative Extremities: - - Joint effusion bilateral shoulders without erythema patient has significant pain with any attempted range of motion 0 active range of motion. Compartments soft neurovascular intact Microbiology Past 72 Hours 03/30/20 20:50 Blood Culture (Wb) - Right Hand Blood Culture - Preliminary Gram Positive Cocci 03/30/20 21:55 Blood Culture (Wb) - Right Forearm Blood Culture - Final Meth. resistant Staph. aureus 03/31/20 10:15 Stool Stool Occult Blood (HECTOR) - Final 03/31/20 02:43 Mucosa - Nasopharyngeal Respiratory Panel (PCR) - Final 03/31/20 03:05 Urine, Clean Catch Streptococcus pneumoniae Antigen (M - Final 03/31/20 03:05 Urine, Clean Catch Legionella Antigen - Final Laboratory Results 03/30/20 21:30: WBC 14.1 H, RBC 3.95 L, Hgb 10.6 L, Hct 31.5 L, MCV 79.7 L, MCH 26.8 L, MCHC 33.7, RDW Std Deviation 41.8, RDW Coeff of Gee 14.4, Plt Count 126 L, MPV 12.3 H, Immature Gran % (Auto) 2.600 H, Neut % (Auto) 85.7 H, Lymph % (Auto) 5.0 L, [place] % (Auto) 6.3, Eos % (Auto) 0.1, Baso % (Auto) 0.3, Absolute Neuts (auto) 12.0 H, Absolute Lymphs (auto) 0.70 L, Nucleated RBC % 0, Toxic Granulation 1+, Platelet Estimate SLT DEC, RBC Morphology N CHROM, Anisocytosis RARE, Microcytosis RARE 03/30/20 21:30: Sodium 132 L, Potassium 3.6, Chloride 97 L, Carbon Dioxide 27.0, Anion Gap 8, BUN 20 H, Creatinine 1.07, Estim Creat Clear Calc 104.76, Est GFR (MDRD) Af Amer 100, Est GFR (MDRD) Non-Af 83, BUN/Creatinine Ratio 18.7, Glucose 132 H, Calcium 7.6 L, Total Bilirubin 0.70, AST 22, ALT 21, Alkaline Phosphatase 91, Troponin I < 0.015, Total Protein 6.8, Albumin 1.9 L, Globulin 4.9 H, Albumin/Globulin Ratio 0.4 L 03/30/20 21:30: Lactic Acid 2.7 H* 03/30/20 21:50: COVID-19 (PILLO) Not Detected 03/31/20 02:10: Lactic Acid 3.1 H* 03/31/20 02:10: D-Dimer Quant (PE/DVT) > 20.00 H* 03/31/20 02:10: Magnesium 2.2, Iron 14 L, TIBC 143 L, Iron Saturation 9.8 L, Ferritin 764 H, Lactate Dehydrogenase 135, C-React Prot Ext Range 156.00 H 03/31/20 02:10: Procalcitonin 0.92 H, HIV 1&2 Antibody Non-Reactive 03/31/20 02:10: Hepatitis A IgM Ab Pending, Hepatitis A Ab Total Pending, Hep Bs Antigen Pending, Hep B Core Total Ab Pending, Hep B Core IgM Ab Pending 03/31/20 02:10: Hemoglobin A1c 5.7 H 03/31/20 02:10: WBC 14.1 H, RBC 3.81 L, Hgb 10.3 L, Hct 30.6 L, MCV 80.3, MCH 27.0, MCHC 33.7, RDW Std Deviation 42.4, RDW Coeff of Gee 14.6, Plt Count 121 L, MPV 11.2, Immature Gran % (Auto) 2.100 H, Neut % (Auto) 84.2 H, Lymph % (Auto) 6.8 L, [place] % (Auto) 6.5, Eos % (Auto) 0.2, Baso % (Auto) 0.2, Absolute Neuts (auto) 11.8 H, Absolute Lymphs (auto) 0.96, Nucleated RBC % 0, Differential Comment SCANNED 03/31/20 02:10: Troponin I < 0.015 03/31/20 03:05: Urine Opiates Screen POSITIVE H, Urine Methadone Screen NEGATIVE, Ur Barbiturates Screen NEGATIVE, Ur Phencyclidine Scrn NEGATIVE, Ur Amphetamines Screen NEGATIVE, U Methamphetamin-MDMA NEGATIVE, U Benzodiazepines Scrn NEGATIVE, Urine Cocaine Screen NEGATIVE, U Cannabinoids Screen NEGATIVE, Ur Drug Screen Comment 03/31/20 05:40: Sodium 138, Potassium 3.6, Chloride 107, Carbon Dioxide 26.0, Anion Gap 5, BUN 16, Creatinine 0.86, Estim Creat Clear Calc 130.34, Est GFR (MDRD) Af Amer 129, Est GFR (MDRD) Non-Af 107, BUN/Creatinine Ratio 18.6, Glucose 129 H, Calcium 6.9 L, Total Bilirubin 0.50, AST 19, ALT 16, Alkaline Phosphatase 75, Total Protein 5.9 L, Albumin 1.5 L, Globulin 4.4 H, Albumin/Globulin Ratio 0.3 L 03/31/20 05:40: Troponin I < 0.015 03/31/20 05:40: Lactic Acid 2.3 H* 03/31/20 08:10: MRSA (PCR) POSITIVE H Current Medications Acetaminophen (Tylenol) 650 mg PO Q4H PRN PRN PRN Reason: Pain Score 1-10/Temp > 100.7 F Al Hydroxide/Mg Hydroxide (Mylanta Ii) 30 ml PO Q6H PRN PRN PRN Reason: Gastric Burning Albuterol Sulfate (Ventolin Aerosols) 2.5 mg INHALATION Q2H PRN PRN PRN Reason: Dyspnea, wheezing Buprenorphine HCl (Buprenorphine Hcl) 0 mg SL Q8H JOEL; Taper Stop: 04/03/20 00:14 Clonidine (Catapres) 0.1 mg PO Q8H PRN PRN PRN Reason: RESTLESSNESS Dicyclomine HCl (Bentyl) 20 mg PO Q6H PRN PRN PRN Reason: Abdominal Discomfort Enoxaparin Sodium (Lovenox) 40 mg SC DAILY [facility] [place] Last Admin: 03/31/20 02:20 Dose: 40 mg Documented by: Famotidine (Pepcid) 20 mg PO BID [facility] [place] Last Admin: 03/31/20 02:19 Dose: 20 mg Documented by: Gabapentin (Neurontin) 300 mg PO Q8H PRN PRN PRN Reason: moderate to severe anxiety Hydroxyzine Pamoate (Vistaril Pamoate Capsule) 50 mg PO Q6H PRN PRN PRN Reason: mild anxiety Last Admin: 03/31/20 13:01 Dose: 50 mg Documented by: Sodium Chloride () 250 mls @ 15 mls/hr IV .[id number] PRN PRN Reason: Saline Flush Last Infusion: 03/31/20 08:00 Dose: 0 mls/hr Documented by: Sodium Chloride () 250 mls @ 15 mls/hr IV .[id number] PRN PRN Reason: Additional IVPB Infusion Piperacillin Sod/Tazobactam (Sod 3.375 gm/ Sodium Chloride) 50 mls @ 12.5 mls/hr IV Q8 JOEL Last Admin: 03/31/20 13:18 Dose: 12.5 mls/hr Documented by: Vancomycin IV Pharmacy to Dose (1 ea/ Sodium Chloride) 500 mls @ 250 mls/hr IV X1 PRN; Protocol PRN Reason: Rx to Dose Sodium Chloride () 1,000 mls @ 150 mls/hr IV .[id number] [facility] [place] Last Admin: 03/31/20 11:19 Dose: 150 mls/hr Documented by: Vancomycin HCl (Vancomycin) 1,000 mg in 200 mls @ 200 mls/hr IV Q8H [facility] [place] Last Admin: 03/31/20 15:43 Dose: 200 mls/hr Documented by: Ibuprofen (Motrin) 600 mg PO Q8H PRN PRN PRN Reason: Pain Score 1-10 Last Admin: 03/31/20 13:01 Dose: 600 mg Documented by: Loperamide HCl (Imodium) 2 mg PO Q4H PRN PRN PRN Reason: LOOSE STOOLS Methocarbamol (Methocarbamol) 1,500 mg PO Q6H PRN PRN PRN Reason: MUSCLE SPASM Morphine Sulfate () 4 mg IV Q3H PRN PRN PRN Reason: Pain Score 6-10 Last Admin: 03/31/20 13:01 Dose: 4 mg Documented by: Nicotine (Nicoderm Cq (Pbkc)) 14 mg TRANSDERM. DAILY [facility] [place] Last Admin: 03/31/20 10:24 Dose: 14 mg Documented by: Nutritional Formula (Simón - [place] Flavor) 1 packet PO BIDCM [facility] [place] Last Admin: 03/31/20 15:44 Dose: 1 packet Documented by: Ondansetron HCl (Zofran) 8 mg PO Q8H PRN PRN PRN Reason: NAUSEA Oxycodone HCl (Oxyir) 10 mg PO Q4H PRN PRN PRN Reason: Pain Score 4-5 Last Admin: 03/31/20 14:28 Dose: 10 mg Documented by: Senna (Senokot) 2 tablet PO QHS PRN PRN PRN Reason: Constipation Sodium Chloride () 10 - 40 ml IV UD PRN PRN Reason: SALINE FLUSH Last Admin: 03/31/20 13:02 Dose: 10 ml Documented by: Throat Lozenges (Cepacol Sore Throat Lozenge) 1 lozenge MUCOUS MEM Q2H PRN PRN PRN Reason: SORE THROAT Trazodone HCl (Desyrel) 50 mg PO QHS PRN PRN PRN Reason: INSOMNIA Assessment/Plan All Active Problems Septic pulmonary embolism (Acute) Severe sepsis (Acute) IV drug abuse (Acute) Endocarditis (Acute) Bilateral septic arthritis -bilateral shoulders were aspirated with jules pus these were sent for aerobic and anaerobic cultures CT findings : Numerous bilateral lung nodules, many of which are cavitary. Septic emboli, cavitating infection, necrotizing noninfectious granulomatous disease such as granulomatosis with polyangiitis, and metastatic disease are in the differential diagnosis. Infectious endocarditis Discussed with admitting and infectious disease consultants and agree with recommendation for transfer to tertiary care
--- NOTE | 2020-03-31 16:42 | DS.PCM_ITS ---
Discharge Date and Diagnosis Date of Admission: 03/30/20 Date of Discharge: 03/31/20 - Primary Discharge Diagnosis Acute Problems: Active Problems Septic pulmonary embolism (Acute) Severe sepsis (Acute) IV drug abuse (Acute) Endocarditis (Acute) Hospital Course and Treatment Imaging Results: Procedure This was a 2D Doppler, Color Flow transthoracic echocardiogram. The study was technically difficult. Pt scanned supine due to pain from withdrawl. Exam performed portable in ICU/CCU. Left Ventricle Normal LV size. The estimated ejection fraction is 55 %. Normal diastology for age. No regional wall motion abnormalities noted. Right Ventricle Normal RV size. Normal systolic function. Atria Normal left atrium. Normal right atrium. No doppler evidence for ASD. Mitral Valve There is no mitral valve stenosis. No mitral valve insufficiency. Tricuspid Valve Echodensity in the subvalvular apparatus that measures 0.9cm x 1.3cm that appears to a vegetation. There is no tricuspid stenosis. Trivial tricuspid valve insufficiency. Pulmonary artery systolic pressure is 40 mmHg. Aortic Valve Trisinus/trileaflet aortic valve. There is no aortic stenosis. No aortic valve insufficiency. Pulmonic Valve There is no pulmonic valvular stenosis. No pulmonic valve insufficiency. Great Vessels Normal aortic root. Pericardium/Pleural No pericardial effusion. MMode/2D Measurements & Calculations LVIDd: 5.4 cm IVSd: 1.0 cm Ao root diam: 3.9 cm LVIDs: 4.0 cm LVPWd: 0.85 cm RVDd: 4.0 cm FS: 27.0 % LAV(MOD-bp): 52.8 ml LA A4 area: 15.5 cm2 LA dimension(2D): 3.6 cm LAV(MOD-bp) Indexed: 26.5 ml/m2 LAV(MOD-sp2): 65.1 ml LAV(MOD-sp4): 40.2 ml _ RA A4 area: 17.4 cm2 Time Measurements MV dec time: 0.32 sec Doppler Measurements & Calculations MV E max danilo: 68.7 cm/sec Lat Peak E' Danilo: 13.1 cm/sec Med Peak E' Danilo: 9.4 cm/sec MV A max danilo: 58.0 cm/sec E/E' lat: 5.2 E/E' med: 7.3 MV E/A: 1.2 _ Ao V2 max: 141.8 cm/sec LV V1 max: 122.7 cm/sec TR max danilo: 291.3 cm/sec Ao max P.1 mmHg LV V1 max P.0 mmHg TR max P.9 mmHg Interpretation Summary The estimated ejection fraction is 55 %. Normal diastology for age. Echodensity in the subvalvular apparatus that measures 0.9cm x 1.3cm that appears to a vegetation Clinical Impression(s) from Imaging Studies Chest X-Ray 03/30/20 22:15 IMPRESSION: Multiple bilateral patchy areas of pulmonary opacity most consistent with nonspecific multifocal pneumonia. Electronically Signed: Gideon Merino MD at 22:37 EDT , Service support , Chest CTA 03/30/20 23:11 IMPRESSION: 1. No large central pulmonary embolus. Evaluation limited due to suboptimal contrast timing. 2. Numerous bilateral lung nodules, many of which are cavitary. Septic emboli, cavitating infection, necrotizing noninfectious granulomatous disease such as granulomatosis with polyangiitis, and metastatic disease are in the differential diagnosis. 3. Heterogeneous renal enhancement. Correlate with urinalysis. 4. Additional findings above. Individualized dose optimization techniques were used for this CT. at 0018 Reported and signed by: Andra Thomas MD Electronically Signed: Andra Thomas MD at 0:18 EDT Tel , Service support , Chest X-Ray 03/31/20 05:55 IMPRESSION: Bilateral peripheral nodules/masses some of which are cavitating without change. Consider septic emboli among others. Electronically Signed: Evon Dey MD at 6:51 EDT , Service support , Summary of Care Provided: Patient is a 34-year-old gentleman with history of polysubstance abuse who presented with progressive generalized weakness fever stiff legs over 4-day. Assessment of severe sepsis secondary to suspected endocarditis need admitted intensive care unit for further management 1. Severe sepsis secondary to bacterial endocarditis with septic emboli to the lungs possibly to shoulders resulting in septic arthritis. -Imaging studies obtained on admission demonstrated Numerous bilateral lung nodules, many of which are cavitary. Blood cultures were obtained on admission patient started on broad-spectrum antibiotic with vancomycin and Zosyn with consultation placed with pulmonary medicine and infectious disease. Blood cultures so far positive for gram-positive cocci -Was seen in consultation by pulmonary medicine, infectious disease as well as orthopedic surgery for patient bilateral shoulder septic arthritis. Decision was made to transfer patient to tertiary care center for evaluation cardiothoracic surgeon given the presence of patient's tricuspid valve vegetation (0.9cm x 1.3cm) 2. Opioid dependence ?In acute opioid withdrawal; currently being managed with Buprenorphine 3. Mild hyponatremia ?Attributed to hypovolemia resuscitated with IV fluid 4. Polysubstance abuse ?Counseled on cessation 5. History of chronic hep C ?Patient to follow-up with PCP for subsequent management 6. Tobacco dependence - Counseled on cessation, offered nicotine patch for tobacco cravings 7. Hypoalbuminemia -Secondary to decreased dietary intake as a result of mild malnutrition 8. Hypocalcemia -Probably related to patient hypoalbuminemia ionized calcium ordered 9. Iron deficiency anemia ?Do suspect decreased oral iron intake patient will be placed on iron supplementation 10. DVT prophylaxis - On enoxaparin Objective: GENERAL: ill looking HEENT: Atraumatic; EYES; Anicteric, Normal Conjunctiva NECK; supple, normal thyroid, RESPIRATORY: Diminished to auscultation CARDIOVASCULAR: Regular S1 S2, GI: soft, normoactive bowel sounds, : No Renal angle tenderness; EXTREMITIES: No edema, no clubbing, MUSCULOSKELETAL: Both shoulders are swollen and tender with restricted movement NEURO: Awake; no lateralizing signs. SKIN: No Rash PSYCH; Flat affect - Physical Exam Vitals/I&O's: Vital Signs Temp Pulse Resp BP Pulse Ox 97.5 F L 88 23 H 106/73 98 03/31/20 13:00 03/31/20 16:20 03/31/20 16:00 03/31/20 16:00 03/31/20 16:00 Oxygen Delivery Method Room Air Weight: 81.3 kg Body Mass Index (BMI) 23.3 Intake and Output for Last 24 Hours 03/29/20 03/30/20 03/31/20 23:59 23:59 23:59 Intake Total 1050 / 1050 4324.25 / 4324.25 Output Total 1165 / 1165 Balance 1050 / 1050 3159.25 / 3159.25 Microbiology Past 72 Hours 03/30/20 20:50 Blood Culture (Wb) - Right Hand Blood Culture - Preliminary Gram Positive Cocci 03/30/20 21:55 Blood Culture (Wb) - Right Forearm Blood Culture - Final Meth. resistant Staph. aureus 03/31/20 10:15 Stool Stool Occult Blood (HECTOR) - Final 03/31/20 02:43 Mucosa - Nasopharyngeal Respiratory Panel (PCR) - Final 03/31/20 03:05 Urine, Clean Catch Streptococcus pneumoniae Antigen (M - Final 03/31/20 03:05 Urine, Clean Catch Legionella Antigen - Final Laboratory Results 03/30/20 21:30: WBC 14.1 H, RBC 3.95 L, Hgb 10.6 L, Hct 31.5 L, MCV 79.7 L, MCH 26.8 L, MCHC 33.7, RDW Std Deviation 41.8, RDW Coeff of Gee 14.4, Plt Count 126 L, MPV 12.3 H, Immature Gran % (Auto) 2.600 H, Neut % (Auto) 85.7 H, Lymph % (Auto) 5.0 L, [place] % (Auto) 6.3, Eos % (Auto) 0.1, Baso % (Auto) 0.3, Absolute Neuts (auto) 12.0 H, Absolute Lymphs (auto) 0.70 L, Nucleated RBC % 0, Toxic Granulation 1+, Platelet Estimate SLT DEC, RBC Morphology N CHROM, Anisocytosis RARE, Microcytosis RARE 03/30/20 21:30: Sodium 132 L, Potassium 3.6, Chloride 97 L, Carbon Dioxide 27.0, Anion Gap 8, BUN 20 H, Creatinine 1.07, Estim Creat Clear Calc 104.76, Est GFR (MDRD) Af Amer 100, Est GFR (MDRD) Non-Af 83, BUN/Creatinine Ratio 18.7, Glucose 132 H, Calcium 7.6 L, Total Bilirubin 0.70, AST 22, ALT 21, Alkaline Phosphatase 91, Troponin I < 0.015, Total Protein 6.8, Albumin 1.9 L, Globulin 4.9 H, Albumin/Globulin Ratio 0.4 L 03/30/20 21:30: Lactic Acid 2.7 H* 03/30/20 21:50: COVID-19 (PILLO) Not Detected 03/31/20 02:10: Lactic Acid 3.1 H* 03/31/20 02:10: D-Dimer Quant (PE/DVT) > 20.00 H* 03/31/20 02:10: Magnesium 2.2, Iron 14 L, TIBC 143 L, Iron Saturation 9.8 L, Ferritin 764 H, Lactate Dehydrogenase 135, C-React Prot Ext Range 156.00 H 03/31/20 02:10: Procalcitonin 0.92 H, HIV 1&2 Antibody Non-Reactive 03/31/20 02:10: Hepatitis A IgM Ab Pending, Hepatitis A Ab Total Pending, Hep Bs Antigen Pending, Hep B Core Total Ab Pending, Hep B Core IgM Ab Pending 03/31/20 02:10: Hemoglobin A1c 5.7 H 03/31/20 02:10: WBC 14.1 H, RBC 3.81 L, Hgb 10.3 L, Hct 30.6 L, MCV 80.3, MCH 27.0, MCHC 33.7, RDW Std Deviation 42.4, RDW Coeff of Gee 14.6, Plt Count 121 L, MPV 11.2, Immature Gran % (Auto) 2.100 H, Neut % (Auto) 84.2 H, Lymph % (Auto) 6.8 L, [place] % (Auto) 6.5, Eos % (Auto) 0.2, Baso % (Auto) 0.2, Absolute Neuts (auto) 11.8 H, Absolute Lymphs (auto) 0.96, Nucleated RBC % 0, Differential Comment SCANNED 03/31/20 02:10: Troponin I < 0.015 03/31/20 03:05: Urine Opiates Screen POSITIVE H, Urine Methadone Screen NEGATIVE, Ur Barbiturates Screen NEGATIVE, Ur Phencyclidine Scrn NEGATIVE, Ur Amphetamines Screen NEGATIVE, U Methamphetamin-MDMA NEGATIVE, U Benzodiazepines Scrn NEGATIVE, Urine Cocaine Screen NEGATIVE, U Cannabinoids Screen NEGATIVE, Ur Drug Screen Comment 03/31/20 05:40: Sodium 138, Potassium 3.6, Chloride 107, Carbon Dioxide 26.0, Anion Gap 5, BUN 16, Creatinine 0.86, Estim Creat Clear Calc 130.34, Est GFR (MDRD) Af Amer 129, Est GFR (MDRD) Non-Af 107, BUN/Creatinine Ratio 18.6, Glucose 129 H, Calcium 6.9 L, Total Bilirubin 0.50, AST 19, ALT 16, Alkaline Phosphatase 75, Total Protein 5.9 L, Albumin 1.5 L, Globulin 4.4 H, Albumin/Globulin Ratio 0.3 L 03/31/20 05:40: Troponin I < 0.015 03/31/20 05:40: Lactic Acid 2.3 H* 03/31/20 08:10: MRSA (PCR) POSITIVE H Current Medications Acetaminophen (Tylenol) 650 mg PO Q4H PRN PRN PRN Reason: Pain Score 1-10/Temp > 100.7 F Al Hydroxide/Mg Hydroxide (Mylanta Ii) 30 ml PO Q6H PRN PRN PRN Reason: Gastric Burning Albuterol Sulfate (Ventolin Aerosols) 2.5 mg INHALATION Q2H PRN PRN PRN Reason: Dyspnea, wheezing Buprenorphine HCl (Buprenorphine Hcl) 0 mg SL Q8H JOEL; Taper Stop: 04/03/20 00:14 Clonidine (Catapres) 0.1 mg PO Q8H PRN PRN PRN Reason: RESTLESSNESS Dicyclomine HCl (Bentyl) 20 mg PO Q6H PRN PRN PRN Reason: Abdominal Discomfort Enoxaparin Sodium (Lovenox) 40 mg SC DAILY [facility] Last Admin: 03/31/20 02:20 Dose: 40 mg Documented by: Famotidine (Pepcid) 20 mg PO BID [facility] Last Admin: 03/31/20 02:19 Dose: 20 mg Documented by: Gabapentin (Neurontin) 300 mg PO Q8H PRN PRN PRN Reason: moderate to severe anxiety Hydroxyzine Pamoate (Vistaril Pamoate Capsule) 50 mg PO Q6H PRN PRN PRN Reason: mild anxiety Last Admin: 03/31/20 13:01 Dose: 50 mg Documented by: Sodium Chloride () 250 mls @ 15 mls/hr IV .[id number] PRN PRN Reason: Saline Flush Last Infusion: 03/31/20 08:00 Dose: 0 mls/hr Documented by: Sodium Chloride () 250 mls @ 15 mls/hr IV .[id number] PRN PRN Reason: Additional IVPB Infusion Piperacillin Sod/Tazobactam (Sod 3.375 gm/ Sodium Chloride) 50 mls @ 12.5 mls/hr IV Q8 [facility] Last Admin: 03/31/20 13:18 Dose: 12.5 mls/hr Documented by: Vancomycin IV Pharmacy to Dose (1 ea/ Sodium Chloride) 500 mls @ 250 mls/hr IV X1 PRN; Protocol PRN Reason: Rx to Dose Sodium Chloride () 1,000 mls @ 150 mls/hr IV .[id number] [facility] Last Admin: 03/31/20 11:19 Dose: 150 mls/hr Documented by: Vancomycin HCl (Vancomycin) 1,000 mg in 200 mls @ 200 mls/hr IV Q8H [facility] Last Admin: 03/31/20 15:43 Dose: 200 mls/hr Documented by: Ibuprofen (Motrin) 600 mg PO Q8H PRN PRN PRN Reason: Pain Score 1-10 Last Admin: 03/31/20 13:01 Dose: 600 mg Documented by: Loperamide HCl (Imodium) 2 mg PO Q4H PRN PRN PRN Reason: LOOSE STOOLS Methocarbamol (Methocarbamol) 1,500 mg PO Q6H PRN PRN PRN Reason: MUSCLE SPASM Morphine Sulfate () 4 mg IV Q3H PRN PRN PRN Reason: Pain Score 6-10 Last Admin: 03/31/20 13:01 Dose: 4 mg Documented by: Nicotine (Nicoderm Cq (Pbkc)) 14 mg TRANSDERM. DAILY [facility] Last Admin: 03/31/20 10:24 Dose: 14 mg Documented by: Nutritional Formula (Simón - [place] Flavor) 1 packet PO BIDCM [facility] Last Admin: 03/31/20 15:44 Dose: 1 packet Documented by: Ondansetron HCl (Zofran) 8 mg PO Q8H PRN PRN PRN Reason: NAUSEA Oxycodone HCl (Oxyir) 10 mg PO Q4H PRN PRN PRN Reason: Pain Score 4-5 Last Admin: 03/31/20 14:28 Dose: 10 mg Documented by: Senna (Senokot) 2 tablet PO QHS PRN PRN PRN Reason: Constipation Sodium Chloride () 10 - 40 ml IV UD PRN PRN Reason: SALINE FLUSH Last Admin: 03/31/20 13:02 Dose: 10 ml Documented by: Throat Lozenges (Cepacol Sore Throat Lozenge) 1 lozenge MUCOUS MEM Q2H PRN PRN PRN Reason: SORE THROAT Trazodone HCl (Desyrel) 50 mg PO QHS PRN PRN PRN Reason: INSOMNIA Discharge Diet: No Restrictions Home Medications: Medications to take at Discharge NK 03/30/20 Primary Care Physician: Care Physician,No Primary [Primary Care Provider] - Disposition: [facility] Minutes spent on discharge:: 35 Patient Condition:: Stable Medical Necessity - Tobacco Use Smoking Status: Current every day smoker Tobacco Use: Cigarettes Meaningful Use Info Meaningful Use Diagnoses (Choose all that apply): None applicable Inpatient E&M: 25999 Disch Hosp
--- NOTE | 2020-03-31 21:24 | NURSING ---
Called report to Carmelina Armendariz RN at [facility] [phone]. Pt is aware of plan of care and in agreement. [facility] has been contacted for transport and approximate ETA is 23:00. Pt belongings gathered and recorded.
[2020-04-01 09:07] LABS: HEPATITIS B SURFACE AG Negative (Negative); Hepatitis A AB, Total Positive (Negative); Hepatitis A IgM Antibody Negative (Negative); Hepatitis B Core AB IgM Negative (Negative); Hepatitis B Core Ab Total Positive (Negative); Hepatitis C Ab >11.0 s/co ratio (0.0-0.9)
[2020-04-01 14:35] LABS: Hep B Surface Antibodies Non Reactive (.)
== END 2020-03-31 23:15 | disposition short-term general hospital (02) | DRG 720 ==
LOC: ED 22:35 → ICU 03-31 00:14
PROVIDERS: Internal Medicine Critical Care Medicine; Admitting Provider Family Medicine; Emergency Provider Emergency Medicine; Visit Provider Internal Medicine
DX: A41.9 Sepsis, unspecified organism (principal); I33.0 Acute and subacute infective endocarditis; R65.20 Severe sepsis without septic shock; I26.90 Septic pulmonary embolism without acute cor pulmonale; M00.9 Pyogenic arthritis, unspecified; J18.9 Pneumonia, unspecified organism; F11.23 Opioid dependence with withdrawal; D50.9 Iron deficiency anemia, unspecified; E88.09 Other disorders of plasma-protein metabolism, not elsewhere classified; E87.1 Hypo-osmolality and hyponatremia; E83.51 Hypocalcemia; E86.1 Hypovolemia; R73.9 Hyperglycemia, unspecified; B18.2 Chronic viral hepatitis C; E44.1 Mild protein-calorie malnutrition; Z68.23 Body mass index [BMI] 23.0-23.9, adult; F17.210 Nicotine dependence, cigarettes, uncomplicated
CPT/HCPCS: 36415; 71045; 71275; 80053; 80307; 82274; 82728; 83036; 83540; 83550; 83605; 83615; 83735; 84145; 84484; 85025; 85379; 86140; 86703; 86704; 86705; 86706; 86708; 86709; 86803; 87040; 87070; 87075; 87077; 87149; 87186; 87205; 87340; 87449; 87633; 87635; 87641; 93005; 93306; 97162; 97166; 97802; 99251; 99285; 99406; J7030; J7040; J7050; Q9967; A4216; G0463; U0003